=== PATIENT | male | born 1955 | race Caucasian/White ===

== ENCOUNTER → 2016-09-10 | Outpatient (CLI) | payer BC ==
--- NOTE | 2016-09-11 08:06 | XR ---
EXAMINATION TYPE: XR shoulder complete RT DATE OF EXAM: 09/10/2016 11:02 AM CLINICAL HISTORY: Right shoulder pain after slip and fall injury today TECHNIQUE: Three views of the right shoulder are obtained. COMPARISON: None. FINDINGS: There is no acute fracture/dislocation evident in the right shoulder. There may be Hill-Sa chs deformity with loss of normal spherical shape involving superior lateral humeral head. Some ossif ic curvilinear fragmentation at this level could reflect distal calcific tendinitis of the rotator cu ff tendons. Inferior glenoid is fairly well-maintained. Acromioclavicular and glenohumeral joint laxmi culations are preserved. The visualized ribs are intact and unremarkable. IMPRESSION: There is no acute fracture or dislocation in the right shoulder clearly seen. Suspect ca lcific tendinitis distal rotator cuff tendons, possible old Hill-Sachs deformity. Clinical correlatio n for prior shoulder dislocation advised.
== END | disposition home or self-care (01) ==
LOC: RADXRYALE 10:49
PROVIDERS: ATTEND Physician Assistant Medical
DX: M25.511 Pain in right shoulder (principal); W00.9XXA Unspecified fall due to ice and snow, initial encounter

== ENCOUNTER → 2016-12-12 | Outpatient (CLI) | payer BC ==
--- NOTE | 2016-12-12 08:04 | US ---
EXAMINATION TYPE: US gallbladder DATE OF EXAM: 12/12/2016 7:19 AM COMPARISON: NONE CLINICAL HISTORY: R10.11 Right upper quadrant pain. Acid reflux EXAM MEASUREMENTS: Liver Length: 17.0 cm Gallbladder Wall: 0.3 cm CBD: 0.2 cm Right Kidney: 11.1 x 5.2 x 5.0 cm Pancreas: Obscured by bowel gas Liver: large body habitus, fatty liver Gallbladder: wnl Evidence for sonographic Marr's sign: No CBD: wnl Right Kidney: wnl IMPRESSION: 1. Unremarkable right upper quadrant ultrasound. 2. Note is made of fatty infiltration liver.
== END | disposition home or self-care (01) ==
LOC: RADUSWWP 07:00
PROVIDERS: ATTEND Family Medicine
DX: K76.0 Fatty (change of) liver, not elsewhere classified (principal); R10.11 Right upper quadrant pain
CPT/HCPCS: 76705

== ENCOUNTER → 2017-09-04 | Outpatient (CLI) | payer BC ==
--- NOTE | 2017-09-04 15:13 | XR ---
EXAMINATION TYPE: XR chest 2V DATE OF EXAM: 09/04/2017 COMPARISON: NONE HISTORY: Cough and fever. TECHNIQUE: Frontal and lateral views of the chest are obtained. FINDINGS: There is chronic emphysematous and parenchymal change . Sternal wires are present. There is no focal air space opacity, pleural effusion, or pneumothorax seen. The cardiac silhouette size is upper limits of normal with atherosclerotic aorta . The osseous structures are intact. IMPRESSION: Chronic changes without suspicious acute infiltrate.
== END | disposition home or self-care (01) ==
LOC: RADXRYALE 14:48
PROVIDERS: ATTEND Physician Assistant Medical
DX: R05 Cough (principal); R50.9 Fever, unspecified
CPT/HCPCS: 71046

== ENCOUNTER → 2017-09-08 | Outpatient (CLI) | payer BC ==
--- NOTE | 2017-09-08 15:43 | XR ---
EXAMINATION TYPE: XR chest 2V DATE OF EXAM: 09/08/2017 COMPARISON: 09/04/2017 HISTORY: 62-year-old male with cough TECHNIQUE: Frontal and lateral views FINDINGS: Heart is borderline enlarged. Median sternotomy wires are present. Mild interstitial prominence as a chronic appearance. Some strandy atelectasis in the lower lungs. No consolidation or pleural effusion . IMPRESSION: Chronic changes without acute cardiopulmonary process.
== END | disposition home or self-care (01) ==
LOC: RADXRYALE 15:01
PROVIDERS: ATTEND Physician Assistant Medical
DX: R05 Cough (principal)
CPT/HCPCS: 71046

== ENCOUNTER 2018-07-02 11:19 | Emergency (ER) | payer BC ==
--- NOTE | 2018-07-02 12:22 | ED ---
General Adult HPI - General Chief complaint: Shortness of Breath Stated complaint: pneumonia-sent by Source: patient Mode of arrival: ambulatory Limitations: no limitations - History of Present Illness Initial comments: 63-year-old male patient with past medical history of CABG, diabetes, COPD presents to ED after seeing his primary care physician Dr. Josh Dominique earlier today. This patient was diagnosed with pneumonia on June 09, and started on azithromycin. Chest x-ray at that time displayed pneumonia and a pulmonary nodule, patient had follow-up CT of pulmonary nodule approximately June 14which confirmed pneumonia, and decreased concern for malignancy of pulmonary nodule. Patient was again seen by his primary care physician on June 20 where the antibiotic was changed to Levaquin. Patient saw his primary care provider earlier today, in which they took an chest x-ray patient was advised to present to ER for IV antibiotics. Patient's current complains included, persistent productive cough, shortness of breath secondary to cough. Patient denies nausea vomiting diarrhea, chest pain, exertional shortness of breath worse than baseline. Patient additionally denies, fever/chills, heart palpitations, dysuria, weakness, change in vision, syncope or presyncope. Systemic: Pt denies fatigue, myalgia, fever/chills, rash. Pt denies weakness, night sweats, weight loss. Neuro: Pt denies headache, visual disturbances, syncope or pre-syncope. HEENT: Pt denies ocular discharge or irritation, otalgia, rhinorrhea, pharyngitis or notable lymphadenopathy. Cardiopulmonary: Pt denies chest pain, SOB, heart palpitations, dyspnea on exertion. Abdominal/GI: Pt denies abdominal pain, n/v/d. : Pt denies dysuria, burning w/ urination, frequency/urgency. Denies new onset urinary or bowel incontinence. MSK: Pt denies myalgia, loss of strength or function in extremities. - Related Data Home Medications Medication Instructions Recorded Confirmed Aspirin 1 tab PO DAILY 12/13/15 07/02/18 Cimetidine [Tagamet] 400 mg PO BID 12/13/15 07/02/18 Clopidogrel [Plavix] 1 tab PO DAILY 12/13/15 12/13/15 Enalapril [Vasotec] 10 mg PO BID 12/13/15 07/02/18 Furosemide [Lasix] 20 mg PO DAILY 12/13/15 07/02/18 Isosorbide Mononitrate ER [Imdur] 30 mg PO DAILY 12/13/15 07/02/18 Levothyroxine Sodium [Synthroid] 25 mcg PO DAILY 12/13/15 07/02/18 Multivitamin [Children's 1 each PO DAILY 12/13/15 07/02/18 Multivitamins] Simvastatin [Zocor] 40 mg pe PO DAILY 12/13/15 07/02/18 metFORMIN HCL [Glucophage] 500 mg PO BID 12/13/15 07/02/18 Albuterol Sulfate [Proair Hfa] 2 puff INHALATION RT-BID PRN 07/02/18 07/02/18 Glimepiride [Amaryl] 2 mg PO BID 07/02/18 07/02/18 Levofloxacin [Levaquin] 500 mg PO DAILY 07/02/18 07/02/18 Metoprolol Tartrate [Lopressor] 25 mg PO BID 07/02/18 07/02/18 Testosterone Cypionate 200 mg IM Q14D 07/02/18 07/02/18 [Depo-Testosterone] Previous Rx's Medication Instructions Recorded Benzonatate [Tessalon Perles] 100 mg PO TID PRN #20 capsule 07/02/18 Allergies Allergy/AdvReac Type Severity Reaction Status Date / Time Mushroom Allergy Unknown Verified 07/02/18 12:45 iodine AdvReac Unknown Verified 07/02/18 12:45 Review of Systems ROS Statement: Those systems with pertinent positive or pertinent negative responses have been documented in the HPI. ROS Other: All systems not noted in ROS Statement are negative. Past Medical History Past Medical History: Coronary Artery Disease (CAD), Chest Pain / Angina, COPD, Diabetes Mellitus, Hyperlipidemia, Hypertension, Thyroid Disorder History of Any Multi-Drug Resistant Organisms: None Reported Past Surgical History: Heart Catheterization With Stent Additional Past Surgical History / Comment(s): CARDIAC BYPASS X4, LEFT CAROTID SURGERY, L/R ILIAC ARTERY STENTS, L BICEPT TENDON REPAIR, L ROTATOR CUFF REPAIR Past Psychological History: No Psychological Hx Reported Smoking Status: Former smoker Past Alcohol Use History: Occasional Past Drug Use History: None Reported General Exam - General Exam Comments Initial Comments: Constitutional: NAD, AOX3, Pt has pleasant affect. HEENT: NC/AT, trachea midline, neck supple, no lymphadenopathy. Posterior pharynx non erythematous, without exudates. External ears appear normal, without discharge. Mucous membranes moist. Eyes PERRLA, EOM intact. There is no scleral icterus. No pallor noted. Cardiopulmonary: RRR, 2/6 systolic murmur noted in right upper sternal border, rubs or gallops, no JVD noted. Lungs CTAB in anterior and posterior sanderson. +1 pitting edema bilaterally. Abdominal exam: Abdomen soft and non-distended. Abdomen non-tender to palpation in all 4 quadrants. Bowel sounds active in LLQ. No hepatosplenomegaly. Neuro: CN II-XII intact. Limitations: no limitations Course Vital Signs 07/02/18 11:43 Temperature 98.3 F Pulse Rate 106 H Respiratory 18 Rate Blood Pressure 135/65 O2 Sat by Pulse 95 Oximetry Medical Decision Making - Medical Decision Making 63-year-old male patient presented to ED after recommendation from his primary care physician. Patient has been prescribed Levaquin and other by mouth antibiotics for a presumed diagnosed pneumonia. Patient had chest x-ray early this morning that was read today as no acute cardiopulmonary process. Patient' s vital signs are stable, nonfebrile, normal heart rate. Laboratory investigations were conducted on the patient, including CBC, CMP, lactic acid. Patient's lactic acid was mildly elevated at 2.2. Patient was given 1 L of normal saline, 1 g of Rocephin. Patient is currently on Levaquin, took one dose this morning. Patient's white blood cell count displayed any left shift or leukocytosis. On physical exam a 2 out of 6 systolic murmur was detected the patient was not previously aware. An EKG did not display any acute signs of ischemia, troponin was negative. Patient not complaining of any chest pain, pleuritic chest pain. Patient scheduled for stress test with glass cutting machine feeder on Friday. Patient had some tenderness of his lower intercostals bilaterally they states from coughing, pain is reproducible by palpation. Patient is to continue taking his Levaquin, follow up with his primary care physician. Patient to follow-up with his glass cutting machine feeder Paulino Chappell for heart murmur in 1 -2 days and alert the provider before his scheduled stress test on Friday. Patient discharged with Karolina shell. Case discussed Dr. Tyler. Patient to return to ER if any new signs or symptoms develop, including chest pain, pleuritic chest pain, syncope or presyncope, or any new symptoms. - Lab Data Result diagrams: 07/02/18 12:25 07/02/18 12:25 Lab Results 07/02/18 07/02/18 07/02/18 Range/Units 12:25 12:25 12:25 WBC 8.6 (3.8-10.6) k/uL RBC 5.59 (4.30-5.90) m/uL Hgb 14.9 (13.0-17.5) gm/dL Hct 46.8 (39.0-53.0) % MCV 83.7 (80.0-100.0) fL MCH 26.7 (25.0-35.0) pg MCHC 31.8 (31.0-37.0) g/dL RDW 15.2 (11.5-15.5) % Plt Count 154 (150-450) k/uL Neutrophils % 64 % Lymphocytes % 18 % Monocytes % 7 % Eosinophils % 8 % Basophils % 1 % Neutrophils # 5.5 (1.3-7.7) k/uL Lymphocytes # 1.6 (1.0-4.8) k/uL Monocytes # 0.6 (0-1.0) k/uL Eosinophils # 0.7 (0-0.7) k/uL Basophils # 0.1 (0-0.2) k/uL Sodium 139 (137-145) mmol/L Potassium 4.7 (3.5-5.1) mmol/L Chloride 101 (98-107) mmol/L Carbon Dioxide 31 H (22-30) mmol/L Anion Gap 7 mmol/L BUN 17 (9-20) mg/dL Creatinine 0.80 (0.66-1.25) mg/dL Est GFR (CKD-EPI)AfAm >90 (>60 ml/min/1.73 sqM) Est GFR (CKD-EPI)NonAf >90 (>60 ml/min/1.73 sqM) Glucose 228 H (74-99) mg/dL Plasma Lactic Acid Julio C 2.2 H* (0.7-2.0) mmol/L Calcium 9.6 (8.4-10.2) mg/dL Total Bilirubin 0.7 (0.2-1.3) mg/dL AST 67 H (17-59) U/L ALT 72 (21-72) U/L Alkaline Phosphatase 54 (38-126) U/L Troponin I (0.000-0.034) ng/mL NT-Pro-B Natriuret Pep pg/mL Total Protein 6.9 (6.3-8.2) g/dL Albumin 4.1 (3.5-5.0) g/dL Urine Color Urine Appearance (Clear) Urine pH (5.0-8.0) Ur Specific [place] (1.001-1.035) Urine Protein (Negative) Urine Glucose (UA) (Negative) Urine Ketones (Negative) Urine Blood (Negative) Urine Nitrite (Negative) Urine Bilirubin (Negative) Urine Urobilinogen (<2.0) mg/dL Ur Leukocyte Esterase (Negative) 07/02/18 07/02/18 07/02/18 Range/Units 12:25 12:25 12:25 WBC (3.8-10.6) k/uL RBC (4.30-5.90) m/uL Hgb (13.0-17.5) gm/dL Hct (39.0-53.0) % MCV (80.0-100.0) fL MCH (25.0-35.0) pg MCHC (31.0-37.0) g/dL RDW (11.5-15.5) % Plt Count (150-450) k/uL Neutrophils % % Lymphocytes % % Monocytes % % Eosinophils % % Basophils % % Neutrophils # (1.3-7.7) k/uL Lymphocytes # (1.0-4.8) k/uL Monocytes # (0-1.0) k/uL Eosinophils # (0-0.7) k/uL Basophils # (0-0.2) k/uL Sodium (137-145) mmol/L Potassium (3.5-5.1) mmol/L Chloride (98-107) mmol/L Carbon Dioxide (22-30) mmol/L Anion Gap mmol/L BUN (9-20) mg/dL Creatinine (0.66-1.25) mg/dL Est GFR (CKD-EPI)AfAm (>60 ml/min/1.73 sqM) Est GFR (CKD-EPI)NonAf (>60 ml/min/1.73 sqM) Glucose (74-99) mg/dL Plasma Lactic Acid Julio C (0.7-2.0) mmol/L Calcium (8.4-10.2) mg/dL Total Bilirubin (0.2-1.3) mg/dL AST (17-59) U/L ALT (21-72) U/L Alkaline Phosphatase (38-126) U/L Troponin I <0.012 (0.000-0.034) ng/mL NT-Pro-B Natriuret Pep 219 pg/mL Total Protein (6.3-8.2) g/dL Albumin (3.5-5.0) g/dL Urine Color Yellow Urine Appearance Clear (Clear) Urine pH 7.0 (5.0-8.0) Ur Specific [place] 1.018 (1.001-1.035) Urine Protein Trace H (Negative) Urine Glucose (UA) 4+ H (Negative) Urine Ketones Negative (Negative) Urine Blood Negative (Negative) Urine Nitrite Negative (Negative) Urine Bilirubin Negative (Negative) Urine Urobilinogen <2.0 (<2.0) mg/dL Ur Leukocyte Esterase Negative (Negative) Disposition Clinical Impression: Pneumonitis Disposition: HOME SELF-CARE Condition: Good Instructions: Pneumonitis (ED) Additional Instructions: Patient to adhere to previously discussed treatment plan and will take medication(s) as directed. Patient to follow up with PCP in 1-2 days. Patient to return to ED if symptoms do not improve. Prescriptions: Benzonatate [Tessalon Perles] 100 mg PO TID PRN #20 capsule PRN Reason: Cough Is patient prescribed a controlled substance at d/c from ED?: No Referrals: Josh Dominique DO [Primary Care Provider] - 1-2 days Paulino Chappell DO [REFERRING] - 1-2 days
[2018-07-02 12:48] LABS: Appearance,Urine Clear (Clear); Bilirubin,Urine Negative (Negative); Blood,Urine Negative (Negative); Color,Urine Yellow; Glucose,Urine (UA) 4+ (Negative); Ketones,Urine Negative (Negative); Leukocyte Esterase,Urine Negative (Negative); Nitrite,Urine Negative (Negative); Protein,Urine Trace (Negative); Specific Gravity,Urine 1.018 (1.001-1.035); Urobilinogen,Urine <2.0 mg/dL (<2.0)
[2018-07-02 12:50] LABS: Basophils # (A) 0.1 k/uL (0-0.2); Basophils % (A) 1 %; Eosinophils # (A) 0.7 k/uL (0-0.7); Eosinophils % (A) 8 %; HCT 46.8 % (39.0-53.0); HGB 14.9 gm/dL (13.0-17.5); Lymphocytes # (A) 1.6 k/uL (1.0-4.8); Lymphocytes % (A) 18 %; MCH 26.7 pg (25.0-35.0); MCHC 31.8 g/dL (31.0-37.0); MCV 83.7 fL (80.0-100.0); Mean Platelet Volume 7.7; Monocytes # (A) 0.6 k/uL (0-1.0); Monocytes % (A) 7 %; Neutrophils # (A) 5.5 k/uL (1.3-7.7); Neutrophils % (A) 64 %; Platelet Count 154 k/uL (150-450); RBC 5.59 m/uL (4.30-5.90); RDW 15.2 % (11.5-15.5); WBC 8.6 k/uL (3.8-10.6)
[2018-07-02 12:59] LABS: ALT 72 U/L (21-72); AST 67 U/L (17-59); Albumin 4.1 g/dL (3.5-5.0); Alkaline Phosphatase 54 U/L (38-126); Anion Gap 7 mmol/L; Blood Urea Nitrogen 17 mg/dL (9-20); Calcium 9.6 mg/dL (8.4-10.2); Carbon Dioxide 31 mmol/L (22-30); Chloride 101 mmol/L (98-107); Glucose 228 mg/dL (74-99); Potassium 4.7 mmol/L (3.5-5.1); Sodium 139 mmol/L (137-145); Total Bilirubin 0.7 mg/dL (0.2-1.3); Total Protein 6.9 g/dL (6.3-8.2)
[2018-07-02] MEDS ORDERED: SODIUM CHLORIDE 0.9% 1,000 ML IV STA (13:24)
[2018-07-02 16:13] VITALS: BP 166/79; PULSE 78; RESP 20; TEMP 98
== END 2018-07-02 16:12 | disposition home or self-care (01) ==
LOC: EC 11:19
DX: J18.9 Pneumonia, unspecified organism (principal); J44.0 Chronic obstructive pulmonary disease with (acute) lower respiratory infection; I25.10 Atherosclerotic heart disease of native coronary artery without angina pectoris; E11.9 Type 2 diabetes mellitus without complications; E78.5 Hyperlipidemia, unspecified; I10 Essential (primary) hypertension; E07.9 Disorder of thyroid, unspecified; Z87.891 Personal history of nicotine dependence; Z95.1 Presence of aortocoronary bypass graft; Z95.5 Presence of coronary angioplasty implant and graft; Z98.890 Other specified postprocedural states; Z79.02 Long term (current) use of antithrombotics/antiplatelets; Z79.82 Long term (current) use of aspirin; Z79.84 Long term (current) use of oral hypoglycemic drugs; Z79.899 Other long term (current) drug therapy; Z91.018 Allergy to other foods; Z91.048 Other nonmedicinal substance allergy status
CPT/HCPCS: 36415; 93005; 83880; 80053; 83605; 84484; 85025; 81003; 87040; 87086; 99285; 96365; 96366; J0696

== ENCOUNTER → 2018-07-02 | Outpatient (CLI) | payer BC ==
--- NOTE | 2018-07-02 10:57 | XR ---
EXAMINATION TYPE: XR chest 2V DATE OF EXAM: 07/02/2018 COMPARISON: Chest x-ray September 08, 2017. HISTORY: Bronchopneumonia per order. Cough wheezing congestion per patient. TECHNIQUE: Frontal and lateral views of the chest are obtained. FINDINGS: There is some chronic parenchymal change without suspicious new focal air space opacity, p leural effusion, or pneumothorax seen. The cardiac silhouette size is enlarged. Post CABG changes with mediastinal clips and sternal wires is present. The osseous structures are intact. IMPRESSION: Cardiomegaly and chronic changes without acute pulmonary process. No significant change from most recent chest x-ray.
== END | disposition home or self-care (01) ==
LOC: RADXRYALE 08:45
PROVIDERS: ATTEND Physician Assistant Medical
DX: J98.4 Other disorders of lung (principal); I51.7 Cardiomegaly
CPT/HCPCS: 71046

== ENCOUNTER → 2019-04-05 | Outpatient (CLI) | payer BC ==
[2019-04-05 17:18] LABS: Basophils # (A) 0.1 k/uL (0-0.2); Basophils % (A) 1 %; Eosinophils # (A) 0.3 k/uL (0-0.7); Eosinophils % (A) 3 %; Lymphocytes # (A) 2.4 k/uL (1.0-4.8); Lymphocytes % (A) 26 %; MCH 27.9 pg (25.0-35.0); MCV 87.2 fL (80.0-100.0); Mean Platelet Volume 6.8; Monocytes # (A) 0.7 k/uL (0-1.0); Monocytes % (A) 7 %; Neutrophils # (A) 5.7 k/uL (1.3-7.7); Neutrophils % (A) 61 %; Platelet Count 255 k/uL (150-450); RBC 5.39 m/uL (4.30-5.90); RDW 14.4 % (11.5-15.5); WBC 9.4 k/uL (3.8-10.6)
[2019-04-06 02:17] LABS: African American GFR (CKD) 93.1 (60.0-200.0); Albumin 4.9 g/dL (3.80-4.90); Albumin/Globulin Ratio 2.72 (1.60-3.17); Anion Gap 12.4 mmol/L (4.00-12.00); Calcium 10.1 mg/dL (8.7-10.3); Carbon Dioxide 29.6 mmol/L (21.6-31.8); Chol/HDL Ratio 3.78; Globulin 1.8 g/dL (1.6-3.3); LDL Cholesterol,Calculated 130.2 mg/dL (0.0-131.0); Non-African American GFR(CKD) 80.3 (60.0-200.0); Potassium 4.3 mmol/L (3.5-5.5); Total Bilirubin 0.8 mg/dL (0.2-1.2); Total Protein 6.7 g/dL (6.2-8.2); VLDL Calculation 19.8 mg/dL (5.00-40.00)
== END | disposition home or self-care (01) ==
LOC: LABWHC1 16:54
PROVIDERS: ATTEND Physician Assistant Medical
DX: I10 Essential (primary) hypertension (principal); J44.9 Chronic obstructive pulmonary disease, unspecified; E78.2 Mixed hyperlipidemia; I73.9 Peripheral vascular disease, unspecified; E03.9 Hypothyroidism, unspecified; E11.65 Type 2 diabetes mellitus with hyperglycemia
CPT/HCPCS: 36415; 80053; 80061; 82550; 84439; 84443; 85025

== ENCOUNTER → 2019-05-26 | Outpatient (CLI) | payer BC | END | disposition home or self-care (01) | LOC: CPPFTMAIN 13:39 | PROVIDERS: ATTEND Internal Medicine Critical Care Medicine | DX: J44.9 Chronic obstructive pulmonary disease, unspecified (principal); J98.8 Other specified respiratory disorders | CPT/HCPCS: 94060; 94726; 94729 ==

== ENCOUNTER → 2020-01-26 | Outpatient (CLI) | payer BC ==
--- NOTE | 2020-01-26 15:10 | XR ---
EXAMINATION TYPE: XR foot complete LT DATE OF EXAM: 01/26/2020 CLINICAL HISTORY: Pain and focal swelling worse over fifth metatarsal. TECHNIQUE: Frontal, lateral, and oblique images of the left foot are obtained. COMPARISON: None FINDINGS: There is no acute fracture/dislocation evident in the left foot. Moderate to severe narrow ing with subchondral cystic change and mild spurring first metatarsal phalangeal joint. Some flexion in the distal second through fifth toes along with varus positioning distal fourth and fifth toes. S mall inferior calcaneal spur. Curvilinear calcification on enthesopathy along the distal Achilles ten don. The overlying soft tissue appears unremarkable. IMPRESSION: As above.
== END | disposition home or self-care (01) ==
LOC: RADXRYALE 14:53
PROVIDERS: ATTEND Physician Assistant
DX: M77.32 Calcaneal spur, left foot (principal); M65.872 Other synovitis and tenosynovitis, left ankle and foot

== ENCOUNTER → 2020-03-14 | Outpatient (CLI) | payer BC | END | disposition home or self-care (01) | LOC: LABWHC1 10:06 | PROVIDERS: ATTEND Physician Assistant Medical | DX: Z20.828 Contact with and (suspected) exposure to other viral communicable diseases (principal); Z20.2 Contact with and (suspected) exposure to infections with a predominantly sexual mode of transmission | CPT/HCPCS: 36415; U0003; C9803; 86769 ==

== ENCOUNTER 2020-08-02 11:20 | Inpatient (IN) | payer BC ==
[2020-08-02] MEDS ORDERED: methylPREDNISolone SOD SUCCI 125 MG/2 ML VIAL IV STA (11:48)
[2020-08-02] MEDS ORDERED: IPRATROPIUM-ALBUTEROL 3 ML NEB INHALATION STA (11:48)
[2020-08-02] MEDS ORDERED: ALBUTEROL HFA INHALER INHALATION STA (11:54)
[2020-08-02 12:17] LABS: Basophils # (A) 0.1 k/uL (0-0.2); Basophils % (A) 1 %; Eosinophils # (A) 0.2 k/uL (0-0.7); Eosinophils % (A) 2 %; HCT 43.7 % (39.0-53.0); HGB 14.2 gm/dL (13.0-17.5); Lymphocytes # (A) 1.6 k/uL (1.0-4.8); Lymphocytes % (A) 17 %; MCH 27.9 pg (25.0-35.0); MCHC 32.5 g/dL (31.0-37.0); MCV 85.7 fL (80.0-100.0); Mean Platelet Volume 7.4; Monocytes # (A) 0.6 k/uL (0-1.0); Monocytes % (A) 6 %; Neutrophils # (A) 6.7 k/uL (1.3-7.7); Neutrophils % (A) 72 %; Platelet Count 211 k/uL (150-450); RDW 13.7 % (11.5-15.5); WBC 9.3 k/uL (3.8-10.6)
[2020-08-02 12:25] LABS: ALT 50 U/L (4-49); AST 44 U/L (17-59); African American GFR (CKD) >90 (>60 ml/min/1.73 sqM); Alkaline Phosphatase 63 U/L (38-126); Anion Gap 6 mmol/L; Blood Urea Nitrogen 11 mg/dL (9-20); Calcium 9.3 mg/dL (8.4-10.2); Carbon Dioxide 29 mmol/L (22-30); Chloride 102 mmol/L (98-107); Creatine Kinase 98 U/L (55-170); Glucose 216 mg/dL (74-99); Magnesium 1.7 mg/dL (1.6-2.3); Non-African American GFR(CKD) >90 (>60 ml/min/1.73 sqM); Potassium 4.3 mmol/L (3.5-5.1); Sodium 137 mmol/L (137-145); Total Bilirubin 0.8 mg/dL (0.2-1.3); Total Protein 6.7 g/dL (6.3-8.2)
--- NOTE | 2020-08-02 12:26 | ED ---
SOB HPI - General Chief Complaint: Shortness of Breath Stated Complaint: SOB,Low O2 Time Seen by Provider: 08/02/20 11:41 Source: patient, family, EMS, RN notes reviewed, old records reviewed Mode of arrival: EMS Limitations: no limitations - History of Present Illness Initial Comments: This is a 65-year-old male with a history of COPD and heart disease with bypass surgery who states he had the onset yesterday of shortness of breath and exertional dyspnea is been getting worse no fevers chills sweats slight cough but no phlegm production no loss of taste or smell no nasal drainage no sore throat. He states he was easily relief of his home medication he does use oxygen at night 2 L. He states his saturations were 74% on 3 L went up to 91% no overt chest pain no other complaints or modifying factors. MD Complaint: shortness of breath - Related Data Home Medications Medication Instructions Recorded Confirmed Clopidogrel [Plavix] 75 mg PO DAILY 12/13/15 08/02/20 Enalapril [Vasotec] 20 mg PO BID 12/13/15 08/02/20 Levothyroxine Sodium [Synthroid] 25 mcg PO DAILY 12/13/15 08/02/20 metFORMIN HCL [Glucophage] 1,000 mg PO BID 12/13/15 08/02/20 Albuterol Sulfate [Proair Hfa] 2 puff INHALATION RT-QID PRN 07/02/18 08/02/20 Glimepiride [Amaryl] 2 mg PO BID 07/02/18 08/02/20 Aspirin EC [Ecotrin Low Dose] 81 mg PO DAILY 08/02/20 08/02/20 Carvedilol [Coreg] 12.5 mg PO BID 08/02/20 08/02/20 Famotidine [Pepcid] 20 mg PO DAILY 08/02/20 08/02/20 Famotidine [Pepcid] 40 mg PO HS 08/02/20 08/02/20 Fluticasone Propion/Salmeterol 1 puff INHALATION RT-BID 08/02/20 08/02/20 [Fluticasone-Salmeterol 500-50] Isosorbide Mononitrate ER [Imdur] 15 mg PO DAILY 08/02/20 08/02/20 Multivit-Min/FA/Lycopen/Lutein 1 tab PO DAILY 08/02/20 08/02/20 [Centrum Silver Tablet] Simvastatin 40 mg PO HS 08/02/20 08/02/20 Tiotropium [place] [Spiriva] 1 cap INHALATION RT-DAILY 08/02/20 08/02/20 Zinc 50 mg PO DAILY 08/02/20 08/02/20 Allergies Allergy/AdvReac Type Severity Reaction Status Date / Time bee venom protein (honey bee) Allergy Anaphylaxis Verified 08/02/20 13:31 Iodinated Contrast Media Allergy Rash/Hives Verified 08/02/20 13:31 iodine Allergy Rash/Hives Verified 08/02/20 13:31 Mushroom Allergy Unknown Verified 08/02/20 13:31 prednisone Allergy Unknown Verified 08/02/20 13:32 Review of Systems ROS Statement: Those systems with pertinent positive or pertinent negative responses have been documented in the HPI. ROS Other: All systems not noted in ROS Statement are negative. Past Medical History Past Medical History: Coronary Artery Disease (CAD), Chest Pain / Angina, COPD, Diabetes Mellitus, Hyperlipidemia, Hypertension, Thyroid Disorder History of Any Multi-Drug Resistant Organisms: None Reported Past Surgical History: Heart Catheterization With Stent Additional Past Surgical History / Comment(s): CARDIAC BYPASS X4, LEFT CAROTID SURGERY, L/R ILIAC ARTERY STENTS, L BICEPT TENDON REPAIR, L ROTATOR CUFF REPAIR Past Psychological History: No Psychological Hx Reported Past Alcohol Use History: Occasional Past Drug Use History: None Reported General Exam - General Exam Comments Initial Comments: This is a well-developed well-nourished awake alert oriented 3 male Limitations: no limitations General appearance: alert, anxious Head exam: Present: atraumatic, normocephalic, normal inspection Eye exam: Present: normal appearance, PERRL, EOMI. Absent: scleral icterus, con junctival injection, periorbital swelling ENT exam: Present: normal exam, mucous membranes moist Neck exam: Present: normal inspection, full ROM, other (No stridor JVD or bruits). Absent: tenderness, meningismus, lymphadenopathy Respiratory exam: Present: wheezes, decreased breath sounds. Absent: respiratory distress, rales, rhonchi, stridor Cardiovascular Exam: Present: regular rate, normal rhythm, normal heart sounds. Absent: systolic murmur, diastolic murmur, rubs, gallop, clicks GI/Abdominal exam: Present: soft, normal bowel sounds. Absent: distended, tenderness, guarding, rebound, rigid Extremities exam: Present: normal inspection, full ROM, normal capillary refill. Absent: tenderness, pedal edema, joint swelling, calf tenderness Back exam: Present: normal inspection Neurological exam: Present: alert, oriented X3, CN II-XII intact Psychiatric exam: Present: normal affect, normal mood Skin exam: Present: warm, dry, intact, normal color. Absent: rash Course Vital Signs 08/02/20 08/02/20 08/02/20 11:21 11:48 13:17 Temperature 98 F Pulse Rate 71 75 Respiratory 18 22 20 Rate Blood Pressure 171/82 171/82 O2 Sat by Pulse 95 97 Oximetry Medical Decision Making - Medical Decision Making Patient did feel better after the breathing treatment. He does however state that about a week ago he had heartburn it lasted throughout the night. None since then. I did discuss findings with him and his . Patient does have evidence of an N STEMI. He is currently pain-free he will be admitted I did dis cuss the case with Dr. Coughlin - Lab Data Result diagrams: 08/02/20 11:50 08/02/20 11:50 Lab Results 08/02/20 08/02/20 08/02/20 Range/Units 11:35 11:50 11:50 WBC 9.3 (3.8-10.6) k/uL RBC 5.10 (4.30-5.90) m/uL Hgb 14.2 (13.0-17.5) gm/dL Hct 43.7 (39.0-53.0) % MCV 85.7 (80.0-100.0) fL MCH 27.9 (25.0-35.0) pg MCHC 32.5 (31.0-37.0) g/dL RDW 13.7 (11.5-15.5) % Plt Count 211 (150-450) k/uL MPV 7.4 Neutrophils % 72 % Lymphocytes % 17 % Monocytes % 6 % Eosinophils % 2 % Basophils % 1 % Neutrophils # 6.7 (1.3-7.7) k/uL Lymphocytes # 1.6 (1.0-4.8) k/uL Monocytes # 0.6 (0-1.0) k/uL Eosinophils # 0.2 (0-0.7) k/uL Basophils # 0.1 (0-0.2) k/uL PT 11.0 (9.0-12.0) sec INR 1.1 (<1.2) APTT 23.6 (22.0-30.0) sec D-Dimer 0.66 H (<0.60) mg/L FEU Sodium (137-145) mmol/L Potassium (3.5-5.1) mmol/L Chloride (98-107) mmol/L Carbon Dioxide (22-30) mmol/L Anion Gap mmol/L BUN (9-20) mg/dL Creatinine (0.66-1.25) mg/dL Est GFR (CKD-EPI)AfAm (>60 ml/min/1.73 sqM) Est GFR (CKD-EPI)NonAf (>60 ml/min/1.73 sqM) Glucose (74-99) mg/dL Plasma Lactic Acid Julio C (0.7-2.0) mmol/L Calcium (8.4-10.2) mg/dL Magnesium (1.6-2.3) mg/dL Total Bilirubin (0.2-1.3) mg/dL AST (17-59) U/L ALT (4-49) U/L Alkaline Phosphatase (38-126) U/L Creatine Kinase (55-170) U/L Troponin I (0.000-0.034) ng/mL NT-Pro-B Natriuret Pep pg/mL Total Protein (6.3-8.2) g/dL Albumin (3.5-5.0) g/dL Coronavirus (PCR) Not Detected (Not Detectd) 08/02/20 08/02/20 08/02/20 Range/Units 11:50 11:50 11:50 WBC (3.8-10.6) k/uL RBC (4.30-5.90) m/uL Hgb (13.0-17.5) gm/dL Hct (39.0-53.0) % MCV (80.0-100.0) fL MCH (25.0-35.0) pg MCHC (31.0-37.0) g/dL RDW (11.5-15.5) % Plt Count (150-450) k/uL MPV Neutrophils % % Lymphocytes % % Monocytes % % Eosinophils % % Basophils % % Neutrophils # (1.3-7.7) k/uL Lymphocytes # (1.0-4.8) k/uL Monocytes # (0-1.0) k/uL Eosinophils # (0-0.7) k/uL Basophils # (0-0.2) k/uL PT (9.0-12.0) sec INR (<1.2) APTT (22.0-30.0) sec D-Dimer (<0.60) mg/L FEU Sodium 137 (137-145) mmol/L Potassium 4.3 (3.5-5.1) mmol/L Chloride 102 (98-107) mmol/L Carbon Dioxide 29 (22-30) mmol/L Anion Gap 6 mmol/L BUN 11 (9-20) mg/dL Creatinine 0.68 (0.66-1.25) mg/dL Est GFR (CKD-EPI)AfAm >90 (>60 ml/min/1.73 sqM) Est GFR (CKD-EPI)NonAf >90 (>60 ml/min/1.73 sqM) Glucose 216 H (74-99) mg/dL Plasma Lactic Acid Julio C 1.6 (0.7-2.0) mmol/L Calcium 9.3 (8.4-10.2) mg/dL Magnesium 1.7 (1.6-2.3) mg/dL Total Bilirubin 0.8 (0.2-1.3) mg/dL AST 44 (17-59) U/L ALT 50 H (4-49) U/L Alkaline Phosphatase 63 (38-126) U/L Creatine Kinase 98 (55-170) U/L Troponin I 0.256 H* (0.000-0.034) ng/mL NT-Pro-B Natriuret Pep pg/mL Total Protein 6.7 (6.3-8.2) g/dL Albumin 4.0 (3.5-5.0) g/dL Coronavirus (PCR) (Not Detectd) 08/02/20 Range/Units 11:50 WBC (3.8-10.6) k/uL RBC (4.30-5.90) m/uL Hgb (13.0-17.5) gm/dL Hct (39.0-53.0) % MCV (80.0-100.0) fL MCH (25.0-35.0) pg MCHC (31.0-37.0) g/dL RDW (11.5-15.5) % Plt Count (150-450) k/uL MPV Neutrophils % % Lymphocytes % % Monocytes % % Eosinophils % % Basophils % % Neutrophils # (1.3-7.7) k/uL Lymphocytes # (1.0-4.8) k/uL Monocytes # (0-1.0) k/uL Eosinophils # (0-0.7) k/uL Basophils # (0-0.2) k/uL PT (9.0-12.0) sec INR (<1.2) APTT (22.0-30.0) sec D-Dimer (<0.60) mg/L FEU Sodium (137-145) mmol/L Potassium (3.5-5.1) mmol/L Chloride (98-107) mmol/L Carbon Dioxide (22-30) mmol/L Anion Gap mmol/L BUN (9-20) mg/dL Creatinine (0.66-1.25) mg/dL Est GFR (CKD-EPI)AfAm (>60 ml/min/1.73 sqM) Est GFR (CKD-EPI)NonAf (>60 ml/min/1.73 sqM) Glucose (74-99) mg/dL Plasma Lactic Acid Julio C (0.7-2.0) mmol/L Calcium (8.4-10.2) mg/dL Magnesium (1.6-2.3) mg/dL Total Bilirubin (0.2-1.3) mg/dL AST (17-59) U/L ALT (4-49) U/L Alkaline Phosphatase (38-126) U/L Creatine Kinase (55-170) U/L Troponin I (0.000-0.034) ng/mL NT-Pro-B Natriuret Pep 1460 pg/mL Total Protein (6.3-8.2) g/dL Albumin (3.5-5.0) g/dL Coronavirus (PCR) (Not Detectd) - EKG Data -: EKG Interpreted by Me EKG shows normal: sinus rhythm (Was sinus rhythm a 71 appear interval 206 QRS duration 138 QT since QTC 432/469 possible left atrial enlargement rightward axis nonspecific interventricular block and T-wave configuration) - Radiology Data Radiology results: report reviewed (Maternal reviewed evidence of increased pulmonary markings consistent with mild CHF.), image reviewed Critical Care Time Critical Care Time: Yes Total Critical Care Time: 31 Critical Care Time: 31 minutes of critical care time which includes initial presentation with history physical labs x-rays reevaluation patient determine fossa treatment. Discussed with the patient family regarding findings discussed with the admitting physician admission orders neck mentation the above Disposition Clinical Impression: Acute exacerbation of chronic obstructive pulmonary disease, Non-STEMI (non-ST elevated myocardial infarction) Disposition: ADMITTED IP TO THIS HOSP Condition: Fair Referrals: Josh Dominique DO [Primary Care Provider] - 1-2 days
[2020-08-02 12:27] LABS: INR 1.1 (<1.2); Partial Thromboplastin Time 23.6 sec (22.0-30.0)
[2020-08-02 12:35] LABS: D-Dimer 0.66 mg/L FEU (<0.60)
--- NOTE | 2020-08-02 12:40 | XR ---
EXAMINATION TYPE: XR chest 2V DATE OF EXAM: 08/02/2020 COMPARISON: 07/02/2018 INDICATION: Difficulty breathing low oxygenation TECHNIQUE: Frontal and lateral views of the chest are obtained. FINDINGS: The heart size is moderately prominent. The pulmonary vasculature is prominent. There is mild diffuse increased lung markings. Findings are worsening over the interval. Clinical cor relation recommended for pulmonary edema or atypical pneumonia. IMPRESSION: 1. Clinical correlation recommended for mild congestive heart failure. Atypical pneumonia should be c onsidered. Follow-up can be performed.
[2020-08-02] MEDS ORDERED: HEPARIN SODIUM,PORCINE 5,000 UNIT/ML 1 ML VIAL IV ONE (13:49)
[2020-08-02] MEDS ORDERED: NITROGLYCERIN SL TABS 0.4 MG TAB SUBLINGUAL PRN (13:49)
[2020-08-02] MEDS ORDERED: FUROSEMIDE 10 MG/ML 4 ML VIAL IV STA (13:51)
[2020-08-02] MEDS: SODIUM CHLORIDE 0.9% 1,000 ML IV SCH (14:06)
[2020-08-02] MEDS: HEPARIN SOD,PORK IN 0.45% NACL 25,000 UNIT in 0.45% NACL 1 250ML.BAG IV SCH (14:11)
--- NOTE | 2020-08-02 14:14 | P.HPIM ---
History of Present Illness Patient is a pleasant 65-year-old the male with known history of COPD uses 2 L of oxygen at nighttime came in with complains of shortness of breath denied any fever chills, was comparing of slight nonproductive cough chest x-ray did not show any pneumonia.Patient's oxygen saturations were as low as 74% which improved after using oxygen. Patient was wheezing quite a bit last night. Patient was given Solu-Medrol here in ER after which his wheezing resolved patient is feeling much better now. Although up on regular lab testing patient is found to have mildly elevated troponin of 0.2 patient does have history of coronary artery bypass grafting patient had an EKG which did show some acute ST- T wave changes in anterolateral leads along with the T-wave inversions in the same leads. Because of which patient is being admitted with IV heparin and cariology consul Review of Systems REVIEW OF SYSTEMS: CONSTITUTIONAL: No fever, no malaise, no fatigue. HEENT: No recent visual problems or hearing problems. Denied any sore throat. CARDIOVASCULAR: No chest pain, orthopnea, PND, no palpitations, no syncope. PULMONARY: no hemoptysis. GASTROINTESTINAL: No diarrhea, no nausea, no vomiting, no abdominal pain. NEUROLOGICAL: No headaches, no weakness, no numbness. HEMATOLOGICAL: Denies any bleeding or petechiae. GENITOURINARY: Denies any burning micturition, frequency, or urgency. MUSCULOSKELETAL/RHEUMATOLOGICAL: Denies any joint pain, swelling, or any muscle pain. ENDOCRINE: Denies any polyuria or polydipsia. The rest of the 14-point review of systems is negative. Past Medical History Past Medical History: Coronary Artery Disease (CAD), Chest Pain / Angina, COPD, Diabetes Mellitus, Hyperlipidemia, Hypertension, Thyroid Disorder History of Any Multi-Drug Resistant Organisms: None Reported Past Surgical History: Heart Catheterization With Stent Additional Past Surgical History / Comment(s): CARDIAC BYPASS X4, LEFT CAROTID SURGERY, L/R ILIAC ARTERY STENTS, L BICEPT TENDON REPAIR, L ROTATOR CUFF REPAIR Past Psychological History: No Psychological Hx Reported Past Alcohol Use History: Occasional Past Drug Use History: None Reported Medications and Allergies Home Medications Medication Instructions Recorded Confirmed Type Clopidogrel [Plavix] 75 mg PO DAILY 12/13/15 08/02/20 History Enalapril [Vasotec] 20 mg PO BID 12/13/15 08/02/20 History Levothyroxine Sodium [Synthroid] 25 mcg PO DAILY 12/13/15 08/02/20 History metFORMIN HCL [Glucophage] 1,000 mg PO BID 12/13/15 08/02/20 History Albuterol Sulfate [Proair Hfa] 2 puff INHALATION RT-QID PRN 07/02/18 08/02/20 History Glimepiride [Amaryl] 2 mg PO BID 07/02/18 08/02/20 History Aspirin EC [Ecotrin Low Dose] 81 mg PO DAILY 08/02/20 08/02/20 History Carvedilol [Coreg] 12.5 mg PO BID 08/02/20 08/02/20 History Famotidine [Pepcid] 20 mg PO DAILY 08/02/20 08/02/20 History Famotidine [Pepcid] 40 mg PO HS 08/02/20 08/02/20 History Fluticasone Propion/Salmeterol 1 puff INHALATION RT-BID 08/02/20 08/02/20 History [Fluticasone-Salmeterol 500-50] Isosorbide Mononitrate ER [Imdur] 15 mg PO DAILY 08/02/20 08/02/20 History Multivit-Min/FA/Lycopen/Lutein 1 tab PO DAILY 08/02/20 08/02/20 History [Centrum Silver Tablet] Simvastatin 40 mg PO HS 08/02/20 08/02/20 History Tiotropium Donovan [Spiriva] 1 cap INHALATION RT-DAILY 08/02/20 08/02/20 History Zinc 50 mg PO DAILY 08/02/20 08/02/20 History Allergies Allergy/AdvReac Type Severity Reaction Status Date / Time bee venom protein (honey bee) Allergy Anaphylaxis Verified 08/02/20 13:31 Iodinated Contrast Media Allergy Rash/Hives Verified 08/02/20 13:31 iodine Allergy Rash/Hives Verified 08/02/20 13:31 Mushroom Allergy Unknown Verified 08/02/20 13:31 prednisone Allergy Unknown Verified 08/02/20 13:32 Physical Exam Vitals: Vital Signs Temp Pulse Resp BP Pulse Ox 08/02/20 13:17 75 20 171/82 97 08/02/20 11:48 22 08/02/20 11:21 98 F 71 18 171/82 95 Intake and Output 08/01/20 08/02/20 08/02/20 22:59 06:59 14:59 Other: Weight 113.398 kg PHYSICAL EXAMINATION: GENERAL: The patient is alert and oriented x3, not in any acute distress. Well developed, well nourished. HEENT: Pupils are round and equally reacting to light. EOMI. No scleral icterus. No conjunctival pallor. Normocephalic, atraumatic. No pharyngeal erythema. No thyromegaly. CARDIOVASCULAR: S1 and S2 present. No murmurs, rubs, or gallops. PULMONARY: Chest is clear to auscultation, no wheezing or crackles. ABDOMEN: Soft, nontender, nondistended, normoactive bowel sounds. No palpable organomegaly. MUSCULOSKELETAL: No joint swelling or deformity. EXTREMITIES: No cyanosis, clubbing, or pedal edema. NEUROLOGICAL: Gross neurological examination did not reveal any focal deficits. SKIN: No rashes. Results CBC & Chem 7: 08/02/20 11:50 08/02/20 11:50 Labs: Abnormal Lab Results - Last 24 Hours (Table) 08/02/20 08/02/20 08/02/20 Range/Units 11:50 11:50 11:50 D-Dimer 0.66 H (<0.60) mg/L FEU Glucose 216 H (74-99) mg/dL ALT 50 H (4-49) U/L Troponin I 0.256 H* (0.000-0.034) ng/mL Assessment and Plan Plan: -Troponin elevation: Possibility of non-ST elevation microinfarction cannot be ruled out. We will repeat 2 more sets of troponins. EKGs. Cardiology was consulted patient was started on IV heparin. Patient will be admitted. Patient had a symptoms of gastroesophageal reflux about 2 weeks ago. -COPD with acute exacerbation of on admission presently resolved patient is not wheezing will not require any systemic steroids. -Coronary artery disease with history of CABG in the past -Type 2 diabetes mellitus next and-hyperlipidemia -Hypertension -Hypothyroidism
[2020-08-02 16:26] LABS: Glucose,Whole Blood 154 mg/dL (75-99)
[2020-08-02] MEDS: metFORMIN 500 MG TAB PO SCH (17:22)
[2020-08-02] MEDS: MAGNESIUM SULFATE-D5W PMX 1 GM in DEXTROSE/WATER 1 100ML.BAG IVPB SCH ×2 (17:22→18:44)
[2020-08-02] MEDS: carvediloL 12.5 MG TAB PO SCH (17:23)
[2020-08-02] MEDS: GLIMEPIRIDE 2 MG TAB PO SCH (17:23)
[2020-08-02] MEDS ORDERED: IPRATROPIUM-ALBUTEROL 3 ML NEB INHALATION SCH (20:00)
[2020-08-02 20:06] LABS: Glucose,Whole Blood 244 mg/dL (75-99)
[2020-08-02] MEDS: SYMBICORT 160-4.5 MCG INHALER INHALATION SCH ×2 (20:59→21:30)
[2020-08-02] MEDS: FAMOTIDINE 20 MG TAB PO SCH (21:27)
[2020-08-02] MEDS: ATORVASTATIN 20 MG TAB PO SCH (21:27)
[2020-08-02] MEDS: lisinopriL 20 MG TAB PO SCH (21:27)
[2020-08-02] MEDS: ALBUTEROL HFA INHALER INHALATION SCH (21:29)
[2020-08-02] MEDS ORDERED: HEPARIN SODIUM,PORCINE 5,000 UNIT/ML 1 ML VIAL IV PRN (21:33)
[2020-08-03 06:27] LABS: Glucose,Whole Blood 126 mg/dL (75-99)
[2020-08-03] MEDS: HEPARIN SOD,PORK IN 0.45% NACL 25,000 UNIT in 0.45% NACL 1 250ML.BAG IV SCH (06:47)
[2020-08-03] MEDS: LEVOTHYROXINE 25 MCG TAB PO SCH (06:51)
[2020-08-03] MEDS: carvediloL 12.5 MG TAB PO SCH ×2 (06:51→16:54)
[2020-08-03] MEDS ORDERED: TIOTROPIUM 18 MCG/PUFF INHALER INHALATION SCH (08:00)
[2020-08-03] MEDS ORDERED: ASPIRIN 325 MG TAB PO SCH (09:00)
[2020-08-03] MEDS: CLOPIDOGREL 75 MG TAB PO SCH (09:14)
[2020-08-03] MEDS: MULTIVITAMINS, THERA 1 EACH TAB PO SCH (09:15)
[2020-08-03] MEDS: lisinopriL 20 MG TAB PO SCH ×2 (09:15→20:11)
[2020-08-03] MEDS: ZINC SULFATE 220 MG CAP PO SCH (09:15)
[2020-08-03] MEDS: metFORMIN 500 MG TAB PO SCH ×2 (09:18→16:54)
[2020-08-03] MEDS: GLIMEPIRIDE 2 MG TAB PO SCH ×2 (09:18→16:54)
[2020-08-03] MEDS: ISOSORBIDE MONONITRATE ER 15 MG TAB PO SCH (09:18)
[2020-08-03] MEDS: ALBUTEROL HFA INHALER INHALATION SCH ×4 (10:10→21:03)
[2020-08-03] MEDS: SYMBICORT 160-4.5 MCG INHALER INHALATION SCH ×2 (10:12→21:04)
--- NOTE | 2020-08-03 10:15 | ECHOF ---
Referral Reason:sob, elev trop MEASUREMENTS -------- HEIGHT: 180.3 cm WEIGHT: 131.1 kg BP: RVIDd: 2.6 cm (< 3.3) IVSd: 1.7 cm (0.6 - 1.1) LVIDd: 5.3 cm (3.9 - 5.3) LVPWd: 1.6 cm (0.6 - 1.1) IVSs: 1.8 cm LVIDs: 4.5 cm LVPWs: 1.9 cm Ao Diam: 3.4 cm (2.0 - 3.7) AV Cusp: 1.6 cm (1.5 - 2.6) LA Diam: 4.0 cm (2.7 - 3.8) MV EXCURSION: 17.354 mm (> 18.000) MV EF SLOPE: 89 mm/s (70 - 150) EPSS: 1.6 cm MV E Ramiro: 0.75 m/s MV DecT: 171 ms MV A Ramiro: 0.55 m/s MV E/A Ratio: 1.36 RAP: 5.00 mmHg RVSP: 9.94 mmHg FINDINGS -------- This was a technically difficult study with suboptimal views. The left ventricular size is normal. There is moderate concentric left ventricular hypertrophy. O verall left ventricular systolic function is moderate-severely impaired with, an EF between 30 - 35 % . Basal inferoseptal LV wall motion is hypokinetic. Mid inferoseptal LV wall motion is hypokinet ic. Inferiorlateral Hypokinesis The right ventricle is normal in size. The left atrial size is normal. The right atrial size is normal. Lumason used Aortic valve is trileaflet and is mildly thickened. Trace amount of aortic regurgitation. There appears to be a small approximately 0.5cm echodenisty of the aortic valve, cannot rule out vegetation . Recommend SOPHIA if clincally indicated. The mitral valve is normal. The mitral valve leaflets are mildly thickened. Mild mitral regurgita tion is present. The tricuspid valve appears structurally normal. Mild tricuspid regurgitation present. Right vent ricular systolic pressure is normal at < 35 mmHg. There is no pulmonic regurgitation present. The aortic root size is normal. IVC Not well visulized. There is no pericardial effusion. CONCLUSIONS -------- 1. The left ventricular size is normal. 2. There is moderate concentric left ventricular hypertrophy. 3. Overall left ventricular systolic function is moderate-severely impaired with, an EF between 30 - 35 %. 4. Basal inferoseptal LV wall motion is hypokinetic. 5. Mid inferoseptal LV wall motion is hypokinetic. 6. Inferiorlateral Hypokinesis 7. Aortic valve is trileaflet and is mildly thickened. 8. There appears to be a small approximately 0.5cm echodenisty of the aortic valve, cannot rule out v egetation. Recommend SOPHIA if clincally indicated. 9. The mitral valve leaflets are mildly thickened. 10. Mild mitral regurgitation is present. 11. Mild tricuspid regurgitation present. 12. There is no pericardial effusion. NEUROPHYSIOLOGICAL TECHNICIAN: Jayda Damico RDCS
[2020-08-03 11:42] LABS: Glucose,Whole Blood 123 mg/dL (75-99)
[2020-08-03] MEDS: FUROSEMIDE 40 MG TAB PO SCH (11:47)
[2020-08-03] MEDS: TIOTROPIUM 18 MCG/PUFF INHALER INHALATION SCH (11:49)
[2020-08-03] MEDS: SODIUM CHLORIDE 0.9% 1,000 ML IV SCH (12:16)
--- NOTE | 2020-08-03 13:30 | P.CRDCN ---
History of Present Illness History of present illness: HISTORY OF PRESENTING ILLNESS This is a pleasant 65-year-old male past medical history significant for very artery disease status post four-vessel bypass grafting in 2005, peripheral vascular disease status post bilateral iliac stenting with bilateral lower extremity revascularization, carotid endarterectomy and recent stent placement thereafter, hypertension, dyslipidemia, former nicotine dependence, COPD and diabetes mellitus. He follows in the office with Ta. We have been asked to see in consultation for elevated troponin. He states yesterday while driving home from work he started feeling an acute onset of shortness of breath. His breathing was getting progressively worse as he was driving home. He has a [address] home[address] By the time he got home he could barely get out of his truck and into the house. When he did finally make it inside he checked his pulse oximetry was in the 70s. He attempted to use his inhalers however this did not improve his breathing. He does have oxygen at home milligrams at night which she applied and his oxygen level came up to the 90s. He denied having any associated chest pain, dizziness or palpitations. According to the patient he had a cardiac catheterization approximately 2 years ago with his primary representative phlebotomy services and was told that one of his grafts was down however he had collateral flow and he needed no further PCI at that point. DIAGNOSTICS EKG reveals sinus mechanism, ST depression and T-wave inversions noted in the lateral leads. Telemetry tracings indicate sinus mechanism. Chest xray diffuse increased lung markings pulmonary edema versus atypical pneumonia. Laboratory reviewed, CBC unremarkable, d-dimer 0.66, sodium 137, potassium 4.3, creatinine 0.68, magnesium 1.7, troponin 0.256, 0.281 and 0.226, NT proBNP 1460, LDL 1:30 and HDL 50. Current cardiac medications include aspirin 81 mg daily, Coreg 12.5 mg twice a day, Plavix 75 mg daily, enalapril 20 mg twice a day, Imdur 15 mg daily and simvastatin 40 mg at bedtime. REVIEW OF SYSTEMS At the time of my exam: CONSTITUTIONAL: Denies fever or chills. CARDIOVASCULAR: Denies chest pain, shortness of breath, orthopnea, PND or palpitations. RESPIRATORY: Complains of cough. GASTROINTESTINAL: Denies abdominal pain, diarrhea, constipation, nausea or vomiting. MUSCULOSKELETAL: Denies myalgias. NEUROLOGIC: Denies numbness, tingling or weakness. ENDOCRINE: Denies fatigue, weight change, polydipsia or polyurina. GENITOURINARY: Denies burning, hematuria or urgency with micturation. HEMATOLOGIC: Denies history of anemia or bleeding. PHYSICAL EXAMINATION Blood pressure 124/76 heart rate 72 afebrile and maintaining oxygen saturation o n room air. CONSTITUTIONAL: No apparent distress. HEENT: Head is normocephalic. Pupils are equal, round. Sclerae anicteric. Mucous membranes of the mouth are moist. No JVD. No carotid bruit. CHEST EXAMINATION: Scattered rhonchi, no rales or wheezes. No chest wall tenderness is noted on palpation or with deep breathing. HEART EXAMINATION: Regular rate and rhythm. S1, S2 heard. No murmurs, gallops or rub. ABDOMEN: Soft, nontender. Positive bowel sounds. EXTREMITIES: Faint peripheral pulses, no lower extremity edema, dusky discoloration bilaterally and no calf tenderness. NEUROLOGIC EXAMINATION: Patient is awake, alert and oriented x3. ASSESSMENT Shortness of breath, clinically patient appears euvolemic. Pneumonia should be considered. COVID negative. COPD Hypoxia Abnormal troponin due to oxygen supply and demand mismatch, type II myocardial infarction Hypertension Dyslipidemia Peripheral vascular disease Diabetes mellitus PLAN Clinically the patient is euvolemic. Check pro-calcitonin. Obtain 2-D echocardiogram and Doppler study to assess cardiac structure and function. Request records from his previous catheterization and echocardiogram. Decrease aspirin to 81 mg daily. Add small dose of oral diuretics, 40 mg in the morning and 20 mg in the afternoon. Thank you kindly for this consultation. Nurse Practitioner note has been reviewed, I agree with a documented findings and plan of care. Patient was seen and examined. Past Medical History Past Medical History: Coronary Artery Disease (CAD), Chest Pain / Angina, COPD, Diabetes Mellitus, Hyperlipidemia, Hypertension, Thyroid Disorder Additional Past Medical History / Comment(s): asthmatic bronchitis stage II/COPD History of Any Multi-Drug Resistant Organisms: None Reported Past Surgical History: Heart Catheterization With Stent Additional Past Surgical History / Comment(s): CARDIAC BYPASS X4, LEFT CAROTID SURGERY, L/R ILIAC ARTERY STENTS, L BICEPT TENDON REPAIR, L & R ROTATOR CUFF REPAIR Past Psychological History: No Psychological Hx Reported Smoking Status: Former smoker Past Alcohol Use History: Occasional Past Drug Use History: None Reported - Past Family History Father Family Medical History: Coronary Artery Disease (CAD), CVA/TIA Additional Family Medical History / Comment(s): CABG Mother Family Medical History: Cancer, Coronary Artery Disease (CAD) Medications and Allergies Home Medications Medication Instructions Recorded Confirmed Type Clopidogrel [Plavix] 75 mg PO DAILY 12/13/15 08/02/20 History Enalapril [Vasotec] 20 mg PO BID 12/13/15 08/02/20 History Levothyroxine Sodium [Synthroid] 25 mcg PO DAILY 12/13/15 08/02/20 History metFORMIN HCL [Glucophage] 1,000 mg PO BID 12/13/15 08/02/20 History Albuterol Sulfate [Proair Hfa] 2 puff INHALATION RT-QID PRN 07/02/18 08/02/20 History Glimepiride [Amaryl] 2 mg PO BID 07/02/18 08/02/20 History Aspirin EC [Ecotrin Low Dose] 81 mg PO DAILY 08/02/20 08/02/20 History Carvedilol [Coreg] 12.5 mg PO BID 08/02/20 08/02/20 History Famotidine [Pepcid] 20 mg PO DAILY 08/02/20 08/02/20 History Famotidine [Pepcid] 40 mg PO HS 08/02/20 08/02/20 History Fluticasone Propion/Salmeterol 1 puff INHALATION RT-BID 08/02/20 08/02/20 History [Fluticasone-Salmeterol 500-50] Isosorbide Mononitrate ER [Imdur] 15 mg PO DAILY 08/02/20 08/02/20 History Multivit-Min/FA/Lycopen/Lutein 1 tab PO DAILY 08/02/20 08/02/20 History [Centrum Silver Tablet] Simvastatin 40 mg PO HS 08/02/20 08/02/20 History Tiotropium Brush [Spiriva] 1 cap INHALATION RT-DAILY 08/02/20 08/02/20 History Zinc 50 mg PO DAILY 08/02/20 08/02/20 History Allergies Allergy/AdvReac Type Severity Reaction Status Date / Time bee venom protein (honey bee) Allergy Anaphylaxis Verified 08/02/20 13:31 Iodinated Contrast Media Allergy Rash/Hives Verified 08/02/20 13:31 iodine Allergy Rash/Hives Verified 08/02/20 13:31 Mushroom Allergy Unknown Verified 08/02/20 13:31 prednisone Allergy Unknown Verified 08/02/20 13:32 Physical Exam Vitals: Vital Signs Temp Pulse Pulse Resp BP BP Pulse Ox 08/03/20 04:00 97.8 F 69 16 141/63 95 08/03/20 02:00 18 08/03/20 00:00 97.8 F 86 18 156/74 97 08/02/20 20:00 98.4 F 84 18 176/76 97 08/02/20 16:09 98.3 F 85 18 188/89 97 08/02/20 13:17 75 20 171/82 97 08/02/20 11:48 22 08/02/20 11:21 98 F 71 18 171/82 95 Intake and Output 08/02/20 08/03/20 08/03/20 22:59 06:59 14:59 Intake Total 100.472 149.528 Balance 100.472 149.528 Intake: Intake, IV Titration 100.472 149.528 Amount Heparin Sod,Pork in 0.45% 100.472 149.528 NaCl 25,000 unit In 0.45 % NaCl 1 250ml.bag @ 8.81 UNITS/KG/HR 9.99 mls/hr IV .Q24H [facility] Rx#: [id number] Other: Voiding Method Toilet Toilet # Voids 1 2 Weight 113.398 kg 131.5 kg Results 08/02/20 11:50 08/02/20 11:50 Cardiac Enzymes 08/02/20 08/02/20 08/02/20 Range/Units 11:50 11:50 14:18 AST 44 (17-59) U/L Troponin I 0.256 H* 0.281 H* (0.000-0.034) ng/mL 08/02/20 Range/Units 17:22 AST (17-59) U/L Troponin I 0.226 H* (0.000-0.034) ng/mL Coagulation 08/02/20 08/02/20 08/03/20 Range/Units 11:50 20:14 02:40 PT 11.0 (9.0-12.0) sec APTT 23.6 33.9 H 50.9 H (22.0-30.0) sec Lipids 08/03/20 Range/Units 02:40 Triglycerides 108 (<150) mg/dL Cholesterol 202 H (<200) mg/dL HDL Cholesterol 50 (40-60) mg/dL CBC 08/02/20 Range/Units 11:50 WBC 9.3 (3.8-10.6) k/uL RBC 5.10 (4.30-5.90) m/uL Hgb 14.2 (13.0-17.5) gm/dL Hct 43.7 (39.0-53.0) % Plt Count 211 (150-450) k/uL Comprehensive Metabolic Panel 08/02/20 Range/Units 11:50 Sodium 137 (137-145) mmol/L Potassium 4.3 (3.5-5.1) mmol/L Chloride 102 (98-107) mmol/L Carbon Dioxide 29 (22-30) mmol/L BUN 11 (9-20) mg/dL Creatinine 0.68 (0.66-1.25) mg/dL Glucose 216 H (74-99) mg/dL Calcium 9.3 (8.4-10.2) mg/dL AST 44 (17-59) U/L ALT 50 H (4-49) U/L Alkaline Phosphatase 63 (38-126) U/L Total Protein 6.7 (6.3-8.2) g/dL Albumin 4.0 (3.5-5.0) g/dL Current Medications Generic Name Dose Route Start Last Admin Trade Name Freq PRN Reason Stop Dose Admin Albuterol Sulfate 2 puff 08/03/20 08:00 08/02/20 21:29 Albuterol Hfa Inhaler INHALATION 2 puff RT-QID [facility] Administration Aspirin 325 mg 08/03/20 09:00 Aspirin 325 Mg Tab PO DAILY [facility] Atorvastatin Calcium 20 mg 08/02/20 21:00 08/02/20 21:27 Atorvastatin 20 Mg Tab PO 20 mg HS [facility] Administration Budesonide/Formoterol Fumarate 2 puff 08/02/20 20:00 08/02/20 21:30 Symbicort 160-4.5 Mcg Inhaler INHALATION 2 puff RT-BID PAT[facility] Administration Carvedilol 12.5 mg 08/02/20 17:30 08/03/20 06:51 Carvedilol 12.5 Mg Tab PO 12.5 mg BID-W/MEALS PATRICK Administration Clopidogrel Bisulfate 75 mg 08/03/20 09:00 Clopidogrel 75 Mg Tab PO DAILY [facility] Famotidine 40 mg 08/02/20 21:00 08/02/20 21:27 Famotidine 20 Mg Tab PO 40 mg HS [facility] Administration Glimepiride 2 mg 08/02/20 17:30 08/02/20 17:23 Glimepiride 2 Mg Tab PO 2 mg BID-W/MEALS PATRICK Administration Heparin Sodium (Porcine) 0 unit 08/02/20 21:33 08/02/20 21:57 Heparin Sodium,Porcine 5,000 Unit/Ml 1 Ml Vial IV 4,000 unit PER PROTOCOL PRN Administration Low PTT Protocol Sodium Chloride 1,000 mls @ 20 mls/hr 08/02/20 14:00 08/02/20 14:06 Saline 0.9% IV 20 mls/hr .Q24H [facility] Administration Heparin Sodium/Sodium Chloride 250 mls @ 9.99 mls/hr 08/02/20 14:00 08/03/20 06:47 25,000 unit/ Sodium Chloride IV 15 units/kg/hr .Q24H [facility] 17.01 mls/hr Administration Protocol 8.81 UNITS/KG/HR Isosorbide Mononitrate 15 mg 08/03/20 09:00 Isosorbide Mononitrate Er 15 Mg Tab PO DAILY [facility] Levothyroxine Sodium 25 mcg 08/03/20 06:30 08/03/20 06:51 Levothyroxine 25 Mcg Tab PO 25 mcg DAILY@0630 PATRICK Administration Lisinopril 40 mg 08/02/20 21:00 08/02/20 21:27 Lisinopril 20 Mg Tab PO 40 mg BID PATRICK Administration Metformin HCl 1,000 mg 08/02/20 17:30 08/02/20 17:22 Metformin 500 Mg Tab PO 1,000 mg BID-W/MEALS PATRICK Administration Multivitamins 1 each 08/03/20 09:00 Multivitamins, Thera 1 Each Tab PO DAILY [facility] Nitroglycerin 0.4 mg 08/02/20 13:49 Nitroglycerin Sl Tabs 0.4 Mg Tab SUBLINGUAL Q5M PRN Chest Pain Tiotropium Brush 1 puff 08/03/20 08:00 Tiotropium 18 Mcg/Puff Inhaler INHALATION RT-DAILY [facility] Zinc Sulfate 220 mg 08/03/20 09:00 Zinc Sulfate 220 Mg Cap PO DAILY [facility] Intake and Output 08/02/20 08/03/20 08/03/20 22:59 06:59 14:59 Intake Total 100.472 149.528 Balance 100.472 149.528 Intake: Intake, IV Titration 100.472 149.528 Amount Heparin Sod,Pork in 0.45% 100.472 149.528 NaCl 25,000 unit In 0.45 % NaCl 1 250ml.bag @ 8.81 UNITS/KG/HR 9.99 mls/hr IV .Q24H [facility] Rx#: [id number] Other: Voiding Method Toilet Toilet # Voids 1 2 Weight 113.398 kg 131.5 kg 08/02/20 11:50 08/02/20 11:50
--- NOTE | 2020-08-03 14:07 | P.PN ---
Subjective Patient is a pleasant 65-year-old the male with known history of COPD uses 2 L of oxygen at nighttime came in with complains of shortness of breath denied any fever chills, was comparing of slight nonproductive cough chest x-ray did not show any pneumonia.Patient's oxygen saturations were as low as 74% which improved after using oxygen. Patient was wheezing quite a bit last night. Patient was given Solu-Medrol here in ER after which his wheezing resolved patient is feeling much better now. Although up on regular lab testing patient is found to have mildly elevated troponin of 0.2 patient does have history of coronary artery bypass grafting patient had an EKG which did show some acute ST- T wave changes in anterolateral leads along with the T-wave inversions in the same leads. Because of which patient is being admitted with IV heparin and cariology consult 08/03/2020 Patient is on oral Lasix at this time. Progesterone rate was ordered by cardiology. Chest x-ray is not consistent with atypical pneumonia and patient doesn't have fever or leukocytosis at this time. Further management of elevated troponins as per cardiology. She had echo cardiac exam which showed a decreased EF of around 30-35% with the wall motion abnormalities. Patient follows up with an outside office machine installer results of previous cardiac catheterization" milligrams are being obtained from a outside cardiology office. Constitutional: Denied any fatigue denied any fever. Cardio vascular: denied any chest pain, palpitations Gastrointestinal denied any nausea vomiting Pulmonary: Denied any shortness of breath cough Neurologic denied any new focal deficits All inpatient medications were reviewed and appropriate changes in these m edications as dictated in the interval history and assessment and plan. Objective - Vital Signs Vital signs: Vital Signs Temp 97.9 F 08/03/20 12:00 Pulse 72 08/03/20 12:00 Resp 18 08/03/20 12:00 BP 124/76 08/03/20 12:00 Pulse Ox 95 08/03/20 12:00 Intake & Output 08/02/20 08/03/20 08/03/20 18:59 06:59 18:59 Intake Total 250.000 180 Balance 250.000 180 Weight 113.398 kg 131.5 kg Intake: Intake, IV Titration 250.000 Amount Heparin Sod,Pork in 0.45% 250.000 NaCl 25,000 unit In 0.45 % NaCl 1 250ml.bag @ 8.81 UNITS/KG/HR 9.99 mls/hr IV .Q24H [facility] Rx#: [id number] Oral 180 Other: Voiding Method Toilet Toilet # Voids 2 - Exam PHYSICAL EXAMINATION: GENERAL: The patient is alert and oriented x3, not in any acute distress. Well developed, well nourished. HEENT: Pupils are round and equally reacting to light. EOMI. No scleral icterus. No conjunctival pallor. Normocephalic, atraumatic. No pharyngeal erythema. No thyromegaly. CARDIOVASCULAR: S1 and S2 present. No murmurs, rubs, or gallops. PULMONARY: Chest is clear to auscultation, no wheezing or crackles. ABDOMEN: Soft, nontender, nondistended, normoactive bowel sounds. No palpable organomegaly. MUSCULOSKELETAL: No joint swelling or deformity. EXTREMITIES: No cyanosis, clubbing, or pedal edema. NEUROLOGICAL: Gross neurological examination did not reveal any focal deficits. SKIN: No rashes. - Labs CBC & Chem 7: 08/02/20 11:50 08/02/20 11:50 Labs: Abnormal Lab Results - Last 24 Hours (Table) 08/02/20 08/02/20 08/02/20 Range/Units 14:18 16:25 17:22 APTT (22.0-30.0) sec POC Glucose (mg/dL) 154 H (75-99) mg/dL Troponin I 0.281 H* 0.226 H* (0.000-0.034) ng/mL Cholesterol (<200) mg/dL LDL Cholesterol, Calc (0-99) mg/dL 08/02/20 08/02/20 08/03/20 Range/Units 20:04 20:14 02:40 APTT 33.9 H (22.0-30.0) sec POC Glucose (mg/dL) 244 H (75-99) mg/dL Troponin I (0.000-0.034) ng/mL Cholesterol 202 H (<200) mg/dL LDL Cholesterol, Calc 130 H (0-99) mg/dL 08/03/20 08/03/20 08/03/20 Range/Units 02:40 06:26 11:41 APTT 50.9 H (22.0-30.0) sec POC Glucose (mg/dL) 126 H 123 H (75-99) mg/dL Troponin I (0.000-0.034) ng/mL Cholesterol (<200) mg/dL LDL Cholesterol, Calc (0-99) mg/dL Assessment and Plan Plan: -Troponin elevation: Possibility of non-ST elevation myocardial infarction cannot be ruled out. Cardiology evaluated the patient patient to can use to be on IV heparin awaiting documents from his primary office machine installer. -COPD with acute exacerbation of on admission presently resolved patient is not wheezing will not require any systemic steroids. - heart failure chronic systolic dysfunction with mild acute exacerbation: Gentle diuresis. Pro-calcitonin was ordered as a cardiology has concern about atypical pneumonia although clinically patient doesn't appear to have atypical pneumonia doesn't have any fever nor leukocytosis -Coronary artery disease with history of CABG in the past -Type 2 diabetes mellitus -hyperlipidemia -Hypertension -Hypothyroidism
[2020-08-03] MEDS ORDERED: FUROSEMIDE 20 MG TAB PO SCH (16:00)
[2020-08-03 16:41] LABS: Glucose,Whole Blood 90 mg/dL (75-99)
[2020-08-03] MEDS: FAMOTIDINE 20 MG TAB PO SCH (20:11)
[2020-08-03] MEDS: ATORVASTATIN 20 MG TAB PO SCH (20:11)
[2020-08-03 20:29] LABS: Glucose,Whole Blood 133 mg/dL (75-99)
[2020-08-04 03:15] VITALS: RESP 18
[2020-08-04 06:00] LABS: Glucose,Whole Blood 84 mg/dL (75-99)
[2020-08-04] MEDS: carvediloL 12.5 MG TAB PO SCH (06:06)
[2020-08-04] MEDS: GLIMEPIRIDE 2 MG TAB PO SCH (06:06)
[2020-08-04] MEDS: LEVOTHYROXINE 25 MCG TAB PO SCH (06:06)
[2020-08-04] MEDS: metFORMIN 500 MG TAB PO SCH (06:06)
[2020-08-04] MEDS ORDERED: ASPIRIN 81 MG PO SCH (09:00)
[2020-08-04] MEDS: ZINC SULFATE 220 MG CAP PO SCH (09:10)
[2020-08-04] MEDS: CLOPIDOGREL 75 MG TAB PO SCH (09:10)
[2020-08-04] MEDS: MULTIVITAMINS, THERA 1 EACH TAB PO SCH (09:10)
[2020-08-04] MEDS: ISOSORBIDE MONONITRATE ER 15 MG TAB PO SCH (09:10)
[2020-08-04] MEDS: lisinopriL 20 MG TAB PO SCH (09:10)
[2020-08-04] MEDS: FUROSEMIDE 40 MG TAB PO SCH (09:15)
[2020-08-04] MEDS: TIOTROPIUM 18 MCG/PUFF INHALER INHALATION SCH (09:28)
[2020-08-04] MEDS: ALBUTEROL HFA INHALER INHALATION SCH ×2 (09:28→12:09)
[2020-08-04] MEDS: SYMBICORT 160-4.5 MCG INHALER INHALATION SCH (09:28)
[2020-08-04 10:18] LABS: African American GFR (CKD) >90 (>60 ml/min/1.73 sqM); Anion Gap 7 mmol/L; Blood Urea Nitrogen 20 mg/dL (9-20); Calcium 9.7 mg/dL (8.4-10.2); Carbon Dioxide 34 mmol/L (22-30); Chloride 96 mmol/L (98-107); Glucose 104 mg/dL (74-99); Non-African American GFR(CKD) >90 (>60 ml/min/1.73 sqM); Potassium 4.6 mmol/L (3.5-5.1); Sodium 137 mmol/L (137-145)
[2020-08-04 10:22] LABS: Glucose,Whole Blood 120 mg/dL (75-99)
[2020-08-04 11:50] LABS: Glucose,Whole Blood 80 mg/dL (75-99)
--- NOTE | 2020-08-04 11:51 | P.PN ---
Subjective HISTORY OF PRESENTING ILLNESS This is a pleasant 65-year-old male past medical history significant for very artery disease status post four-vessel bypass grafting in 2006, peripheral vascular disease status post bilateral iliac stenting with bilateral lower extremity revascularization, carotid endarterectomy and recent stent placement thereafter, hypertension, dyslipidemia, former nicotine dependence, COPD and diabetes mellitus. He follows in the office with Ta. He seen and examined sitting up in the chair in no acute distress. He denies any worsening shortness of breath. He has no symptoms of chest pain, dizziness or palpitations. Overall he feels back to baseline. Blood pressure 132/63 heart rate 70 afebrile maintaining oxygen saturation on room air, laboratory data reviewed, Broca's atone and 0.05, sodium 137, potassium 4.6 and creatinine 0.87. Echocardiogram obtained reveals impaired LV systolic function with ejection fraction 30-35%, basal inferoseptal, mid inferoseptal and inferolateral wall motion hypokinesia. PHYSICAL EXAMINATION CONSTITUTIONAL: No apparent distress. HEENT: Head is normocephalic. Pupils are equal, round. Sclerae anicteric. Mucous membranes of the mouth are moist. No JVD. No carotid bruit. CHEST EXAMINATION: Scattered rhonchi, no rales or wheezes. No chest wall tenderness is noted on palpation or with deep breathing. HEART EXAMINATION: Regular rate and rhythm. S1, S2 heard. No murmurs, gallops or rub. EXTREMITIES: Faint peripheral pulses, no lower extremity edema, dusky d iscoloration bilaterally and no calf tenderness. ASSESSMENT Shortness of breath, clinically patient appears euvolemic. Pneumonia should be considered. COVID negative. Chronic systolic heart failure, clinically euvolemic COPD Hypoxia Abnormal troponin due to oxygen supply and demand mismatch, type II myocardial infarction Hypertension Dyslipidemia Peripheral vascular disease Diabetes mellitus PLAN Continue current medical regimen. Stable for discharge from a cardiac perspective. Follow-up with his primary power digger operator next week. Nurse Practitioner note has been reviewed, I agree with a documented findings and plan of care. Patient was seen and examined. Objective - Vital Signs Vital signs: Vital Signs Temp 97.9 F 08/04/20 08:00 Pulse 70 08/04/20 08:00 Resp 18 08/04/20 08:00 BP 132/63 08/04/20 08:00 Pulse Ox 92 L 08/04/20 08:00 Intake & Output 08/03/20 08/04/20 08/04/20 18:59 06:59 18:59 Intake Total 360 240 660 Output Total 1400 650 700 Balance -1040 -410 -40 Weight 129 kg Intake: Oral 360 240 660 Output: Urine 1400 650 700 Other: Voiding Method Toilet Toilet Toilet # Voids 2 1 - Labs CBC & Chem 7: 08/02/20 11:50 08/04/20 09:10 Labs: Abnormal Lab Results - Last 24 Hours (Table) 08/03/20 08/04/20 08/04/20 Range/Units 20:27 09:10 10:18 Chloride 96 L (98-107) mmol/L Carbon Dioxide 34 H (22-30) mmol/L Glucose 104 H (74-99) mg/dL POC Glucose (mg/dL) 133 H 120 H (75-99) mg/dL
[2020-08-04 12:27] VITALS: TEMP 98.1
[2020-08-04 15:08] VITALS: BP 137/64; PULSE 68
[2020-08-04] MEDS: SODIUM CHLORIDE 0.9% 1,000 ML IV SCH (15:26)
--- NOTE | 2020-08-04 16:55 | P.CNPUL ---
History of Present Illness Consult date: 08/04/20 Reason for consult: dyspnea History of present illness: 65-year-old male patient with known history of coronary artery disease and previous bypass surgery back in 2005 in addition to known history of peripheral vascular disease and previous bilateral iliac artery stenting and lower extremity revascularization, carotid artery disease with previous carotid artery stenting and hypertension and hyperlipidemia and COPD and diabetes mellitus. Th e patient came into the hospital because of an acute shortness of breath. The patient felt short of breath when driving from work. Breathing got progressively worse. By the time he arrived home, he was quite short of breath. The patient came in his house where he uses inhalers he was not improving. His pulse ox was low. He has oxygen at home and he applied oxygen himself bring his saturation above 90%. No reported chest pain. No dizziness. No palpitation. No syncope. His last cardiac catheterization was 2 years ago with journeyman patternmaker and he apparently had one of the grafts occluded with collateral circulation. There was no intervention done. In the hospital, the patient is a 62 that showed diffuse interstitial markings bilaterally/pulmonary edema. EKG showed ST segment depression to his inversions on the lateral leads into the normal sinus rhythm. His laboratory workup showed a normal CBC, his sodium was 137, creatinine of 0.6, troponin of 0.25, 0.28 and 0.22 respectively 3, a proBNP level of 1460 and a d-dimer of 0.66. . The patient was hospitalized. He was started on IV heparin and a cardiology consultation was requested. A pulmonary consultation was also requested. The patient's coronavirus/Covid 19 nasal swab came back negative on 2 separate occasions, last one being on 08/02/2020. Review of Systems Constitutional: Denies chills, Denies fever Eyes: denies as per HPI, denies blurred vision, denies bulging eye, denies decreased vision, denies diplopia, denies discharge, denies dry eye, denies irritation, denies itching, denies pain, denies photophobia, denies loss of peripheral vision, denies loss of vision, denies tunnel vision/blind spots Ears: deny: decreased hearing, ear discharge, earache, tinnitus Ears, nose, mouth and throat: Reports as per HPI Breasts: absent: as per HPI, gynecomastia Cardiovascular: Reports claudication, Reports decreased exercise tolerance, Reports dyspnea on exertion Respiratory: Reports dyspnea Gastrointestinal: Reports as per HPI Genitourinary: Reports as per HPI Musculoskeletal: absent: ankle pain, ankle stiffness, ankle swelling Integumentary: Reports as per HPI Neurological: Reports as per HPI Psychiatric: Reports as per HPI Endocrine: Reports as per HPI Hematologic/Lymphatic: Reports as per HPI Allergic/Immunologic: Reports as per HPI Past Medical History Past Medical History: Coronary Artery Disease (CAD), Chest Pain / Angina, Heart Failure, COPD, Diabetes Mellitus, Hyperlipidemia, Hypertension, Thyroid Disorder Additional Past Medical History / Comment(s): asthmatic bronchitis stage II/COPD History of Any Multi-Drug Resistant Organisms: None Reported Past Surgical History: Heart Catheterization With Stent Additional Past Surgical History / Comment(s): CARDIAC BYPASS X4, LEFT CAROTID SURGERY, L/R ILIAC ARTERY STENTS, L BICEPT TENDON REPAIR, L & R ROTATOR CUFF REPAIR Past Psychological History: No Psychological Hx Reported Smoking Status: Former smoker Past Alcohol Use History: Occasional Past Drug Use History: None Reported - Past Family History Father Family Medical History: Coronary Artery Disease (CAD), CVA/TIA Additional Family Medical History / Comment(s): CABG Mother Family Medical History: Cancer, Coronary Artery Disease (CAD) Medications and Allergies Home Medications Medication Instructions Recorded Confirmed Type Clopidogrel [Plavix] 75 mg PO DAILY 12/13/15 08/02/20 History Enalapril [Vasotec] 20 mg PO BID 12/13/15 08/02/20 History Levothyroxine Sodium [Synthroid] 25 mcg PO DAILY 12/13/15 08/02/20 History metFORMIN HCL [Glucophage] 1,000 mg PO BID 12/13/15 08/02/20 History Albuterol Sulfate [Proair Hfa] 2 puff INHALATION RT-QID PRN 07/02/18 08/02/20 History Glimepiride [Amaryl] 2 mg PO BID 07/02/18 08/02/20 History Aspirin EC [Ecotrin Low Dose] 81 mg PO DAILY 08/02/20 08/02/20 History Carvedilol [Coreg] 12.5 mg PO BID 08/02/20 08/02/20 History Famotidine [Pepcid] 20 mg PO DAILY 08/02/20 08/02/20 History Famotidine [Pepcid] 40 mg PO HS 08/02/20 08/02/20 History Fluticasone Propion/Salmeterol 1 puff INHALATION RT-BID 08/02/20 08/02/20 History [Fluticasone-Salmeterol 500-50] Isosorbide Mononitrate ER [Imdur] 15 mg PO DAILY 08/02/20 08/02/20 History Multivit-Min/FA/Lycopen/Lutein 1 tab PO DAILY 08/02/20 08/02/20 History [Centrum Silver Tablet] Simvastatin 40 mg PO HS 08/02/20 08/02/20 History Tiotropium Dunnigan [Spiriva] 1 cap INHALATION RT-DAILY 08/02/20 08/02/20 History Zinc 50 mg PO DAILY 08/02/20 08/02/20 History Furosemide [Lasix] 40 mg PO DAILY #30 tab 08/04/20 Rx Allergies Allergy/AdvReac Type Severity Reaction Status Date / Time bee venom protein (honey bee) Allergy Anaphylaxis Verified 08/02/20 13:31 Iodinated Contrast Media Allergy Rash/Hives Verified 08/02/20 13:31 iodine Allergy Rash/Hives Verified 08/02/20 13:31 Mushroom Allergy Unknown Verified 08/02/20 13:31 prednisone Allergy Unknown Verified 08/02/20 13:32 Physical Exam Vitals: Vital Signs Temp Pulse Resp BP Pulse Ox 08/04/20 15:08 68 18 137/64 97 08/04/20 14:00 77 18 08/04/20 12:00 98.1 F 77 18 150/73 96 08/04/20 08:00 97.9 F 70 18 132/63 92 L 08/04/20 03:14 98.4 F 60 18 124/68 99 08/04/20 02:00 66 20 08/04/20 00:00 66 20 122/74 95 08/03/20 21:05 97 08/03/20 20:00 98.6 F 70 18 126/70 95 Intake and Output 08/04/20 08/04/20 08/04/20 06:59 14:59 22:59 Intake Total 660 Output Total 650 700 Balance -650 -40 Intake: Oral 660 Output: Urine 650 700 Other: Voiding Method Toilet Toilet # Voids 1 Weight 129 kg GENERAL: The patient is alert and oriented x3, not in any acute distress. Well developed, well nourished. HEENT: Pupils are round and equally reacting to light. EOMI. No scleral icterus. No conjunctival pallor. Normocephalic, atraumatic. No pharyngeal erythema. No thyromegaly. CARDIOVASCULAR: S1 and S2 present. No murmurs, rubs, or gallops. PULMONARY: Chest is clear to auscultation, no wheezing or crackles. Thoracotomy scar over the anterior chest ABDOMEN: Soft, nontender, nondistended, normoactive bowel sounds. No palpable organomegaly. MUSCULOSKELETAL: No joint swelling or deformity. EXTREMITIES: No cyanosis, clubbing, or pedal edema. NEUROLOGICAL: Gross neurological examination did not reveal any focal deficits. SKIN: No rashes. Results - Laboratory Findings CBC and BMP: 08/02/20 11:50 08/04/20 09:10 PT/INR, D-dimer PT 11.0 sec (9.0-12.0) 08/02/20 11:50 INR 1.1 (<1.2) 08/02/20 11:50 D-Dimer 0.66 mg/L FEU (<0.60) H 08/02/20 11:50 Abnormal lab findings: Abnormal Labs 08/02/20 08/02/20 08/02/20 11:50 11:50 11:50 APTT D-Dimer 0.66 H Chloride Carbon Dioxide Glucose 216 H POC Glucose (mg/dL) ALT 50 H Troponin I 0.256 H* Cholesterol LDL Cholesterol, Calc 08/02/20 08/02/20 08/02/20 14:18 16:25 17:22 APTT D-Dimer Chloride Carbon Dioxide Glucose POC Glucose (mg/dL) 154 H ALT Troponin I 0.281 H* 0.226 H* Cholesterol LDL Cholesterol, Calc 08/02/20 08/02/20 08/03/20 20:04 20:14 02:40 APTT 33.9 H D-Dimer Chloride Carbon Dioxide Glucose POC Glucose (mg/dL) 244 H ALT Troponin I Cholesterol 202 H LDL Cholesterol, Calc 130 H 08/03/20 08/03/20 08/03/20 02:40 06:26 11:41 APTT 50.9 H D-Dimer Chloride Carbon Dioxide Glucose POC Glucose (mg/dL) 126 H 123 H ALT Troponin I Cholesterol LDL Cholesterol, Calc 08/03/20 08/04/20 08/04/20 20:27 09:10 10:18 APTT D-Dimer Chloride 96 L Carbon Dioxide 34 H Glucose 104 H POC Glucose (mg/dL) 133 H 120 H ALT Troponin I Cholesterol LDL Cholesterol, Calc - Diagnostic Findings Chest x-ray: image reviewed Assessment and Plan Plan: 1 Acute non-ST elevation myocardial infarction 2 Acute Systolic heart failure with secondary shortness of breath 3 acute hypoxic respiratory failure secondary to above, improved with diuresis and the patient is currently on room air oxygen 4 COPD, steroid-dependent on a combination of Advair and Spiriva on outpatient basis 5 coronary artery disease with previous coronary artery bypass surgery 6 peripheral vascular disease 7 carotid artery disease with previous stenting 8 diabetes mellitus type 2 9 hypertension 10 hypothyroidism Plan The patient's primary status is stable. Recommended continuing the Spiriva for now regarding his COPD in combination with Advair Diskus 500/50 one puff twice a day and he's been utilizing this medication on outpatient basis. The patient also has home O2 that he wears on an as-needed basis especially at nighttime. This medication will be continued and there is no signs of any COPD exacerbation this point in time. Awaiting further input from cardiology regarding the acute non-STEMI. He will need probably more investigation including another cardiac catheterization to evaluate his coronary anatomy. I will leave it up to cardiology. From the pulmonary standpoint, his COPD stable. I'm going to sign off the case and leave the rest of the management up to cardiology. Note that his coronavirus/Covid 19 PCR came back negative on 2 separate occasions. His proBNP level is slightly elevated.
--- NOTE | 2020-08-06 12:56 | CDI ---
Documentation Clarification Form Date: 08/06/2020 12:44:00 PM From: Janice Solares Phone: If you have a question about this query, please contact Tere Vázquez Power System Engineer at [phone] between 8am and 5pm. Admit Date: 08/02/2020 01:49:00 PM Patient Name: Osvaldo Saravia Visit Number: [id number] Discharge Date: 08/04/2020 03:48:00 PM ATTENTION: The Clinical Documentation Specialists (CDI) and [facility] Coding Staff appreciate your assistance in clarifying documentation. Please respond to the clarification below the line at the bottom and electronically sign. The CDI & [facility] Coding staff will review the response and follow-up if needed. Please note: Queries are made part of the Legal Health Record. If you have any questions, please contact the author of this message via ITS. Dr. Darius Coughlin Conflicting documentation has been found in the medical record ER notes and Pulmonary 08/04 PN document patient with Acute NSTEMI. Cardiology consult and PN document Type II LA oxygen supply and demand mismatch. H and P documents Possibility of NSTEMI microinfarction cannot be ruled out. Please clarify if patient had an NSTEMI, NSTEMI ruled out, NSTEMI Type II. If type II please clarify cause. History/Risk Factors: CAD History of CABG, PVD, CHF, HTN Clinical Indicators: Elevation in troponins - .256, .281, .226 Treatment: IV heparin In your opinion, what is the most clinically appropriate diagnosis for this patient? Acute NSTEMI Type II LA (if so please clarify cause) NSTEMI ruled out Other explanation of clinical findings Unable to determine (no explanation for clinical findings) Query will be more appropriate for cardiology MTDD
--- NOTE | 2020-08-09 15:41 | CDI ---
Documentation Clarification Form Date: 08/09/2020 From: Tere Vázquez Phone: If questions, call [phone] janna 8 am and 5pm. Admit Date: 08/02/2020 01:49:00 PM Patient Name: Osvaldo Saravia Visit Number: [id number] Discharge Date: 08/04/2020 03:48:00 PM ATTENTION: The Clinical Documentation Specialists (CDI) and [facility] Coding Staff appreciate your assistance in clarifying documentation. Please respond to the clarification below the line at the bottom and electronically sign. The CDI & [facility] Coding staff will review the response and follow-up if needed. Please note: Queries are made part of the Legal Health Record. If you have any questions, please contact the author of this message via ITS. Dr. Analisa Cortes Conflicting documentation has been found in the medical record: ER notes and Pulmonary 08/04 prg note document patient with NSTEMI. H & P documents -Possibility of NSTEMI microinfarction cannot be ruled out. Cardiology consult and prog note document Type II SD oxygen supply and demand mismatch. History/Risk Factors: CAD History of CABG, PVD, CHF, HTN Clinical Indicators: Elevation in troponins - .256, .281, .226 Treatment: IV heparin As corporate general manager, the attending has requested that you provide the final determination of type of SD for this patient. Acute NSTEMI Type II SD (if so please clarify cause) NSTEMI ruled out Other explanation of clinical findings NSTEMI ruled out MTDD
== END 2020-08-04 15:48 | disposition home or self-care (01) | DRG 291 ==
LOC: EC 11:20 → 3SCARD 13:49
PROVIDERS: ADMIT Internal Medicine; ATTEND Internal Medicine
DX: I11.0 Hypertensive heart disease with heart failure (principal); J96.01 Acute respiratory failure with hypoxia; J44.1 Chronic obstructive pulmonary disease with (acute) exacerbation; E03.9 Hypothyroidism, unspecified; E11.51 Type 2 diabetes mellitus with diabetic peripheral angiopathy without gangrene; I70.219 Atherosclerosis of native arteries of extremities with intermittent claudication, unspecified extremity; Z79.84 Long term (current) use of oral hypoglycemic drugs; E78.5 Hyperlipidemia, unspecified; I25.10 Atherosclerotic heart disease of native coronary artery without angina pectoris; I50.23 Acute on chronic systolic (congestive) heart failure; Z20.828 Contact with and (suspected) exposure to other viral communicable diseases; Z79.02 Long term (current) use of antithrombotics/antiplatelets; Z79.82 Long term (current) use of aspirin; Z79.890 Hormone replacement therapy; Z79.899 Other long term (current) drug therapy; Z82.49 Family history of ischemic heart disease and other diseases of the circulatory system; Z87.891 Personal history of nicotine dependence; Z95.1 Presence of aortocoronary bypass graft; Z95.828 Presence of other vascular implants and grafts; Z88.8 Allergy status to other drugs, medicaments and biological substances; Z91.030 Bee allergy status; Z91.041 Radiographic dye allergy status; Z79.52 Long term (current) use of systemic steroids; Z99.81 Dependence on supplemental oxygen
CPT/HCPCS: 36415; 71046; 80048; 80053; 80061; 82550; 83605; 83735; 83880; 84145; 84484; 85025; 85379; 85610; 85730; 87635; 93005; 93306; 94640; 94760; 96365; 96375; 96376; 99291

== ENCOUNTER → 2021-01-24 | Outpatient (CLI) | payer BC ==
--- NOTE | 2021-01-25 15:54 | CTL ---
EXAMINATION TYPE: CT Low Dose Lung DATE OF EXAM ORDERED: 01/24/2021 HISTORY: Personal tobacco use. Lung cancer screening CT DLP: 146.[address] CTDI: 4.0 mGy Automated exposure control for dose reduction was used. SCREENING VISIT: Initial COMPARISON: 12/14/2015 TECHNIQUE: Low dose computed tomography scan was performed through the chest at 1 mm thick sections a nd reconstructed images in the coronal plane at [address] DIAGNOSTIC QUALITY: Satisfactory FINDINGS: LUNG NODULES: Present, detailed below: There is a 0.4 cm area of pneumonitis in the lingula. Series 4 image 141 Compressive atelectasis is within the dependent lung bases bilaterally LUNGS: COPD: Severity: Mild Fibrosis: Severity: Minimal Lymph nodes: There is a 1.3 cm lymph node in the pretracheal space. Series 5 image 22 Other findings: None RIGHT PLEURAL SPACE: Effusion: None Calcification: None Thickening: None Pneumothorax: None LEFT PLEURAL SPACE: Effusion: None Calcification: None Thickening: None Pneumothorax: None HEART: Heart Size: Normal Coronary calcification: Moderate Pericardial effusion: None OTHER FINDINGS: Upper abdomen: Normal Bony thorax: Normal Supraclavicular region: Normal Other: Ascending thoracic aorta at the level the main pulmonary artery measures 3.9 cm. The main pul monary artery at the bifurcation measures 3.0 cm. IMPRESSION: Benign appearance FOLLOW UP CT CHEST RECOMMENDATION: Low dose CT chest one year CT LUNG RAD: Lung-Rad 2 Benign Appearance or Behavior
== END | disposition home or self-care (01) ==
LOC: RADCTMAIN 17:14
PROVIDERS: ATTEND Internal Medicine Critical Care Medicine
DX: Z12.2 Encounter for screening for malignant neoplasm of respiratory organs (principal); Z87.891 Personal history of nicotine dependence
CPT/HCPCS: 71271

== ENCOUNTER 2021-04-24 20:19 | Inpatient (IN) | payer BC ==
[2021-04-24] MEDS ORDERED: ASPIRIN 81 MG PO STA (20:25)
[2021-04-24] MEDS ORDERED: FUROSEMIDE 10 MG/ML 4 ML VIAL IV STA (20:26)
[2021-04-24] MEDS ORDERED: NITROGLYCERIN-D5W PMX 50 MG in DEXTROSE/WATER 1 250ML.BAG IV ONE (20:28)
[2021-04-24] MEDS ORDERED: niCARdipine 20 MG in SODIUM CHLORIDE 0.9% 192 ML IV SCH (20:30)
[2021-04-24 20:52] LABS: Basophils # (A) 0.1 k/uL (0-0.2); Basophils % (A) 1 %; Eosinophils # (A) 0.3 k/uL (0-0.7); Eosinophils % (A) 2 %; HCT 53.7 % (39.0-53.0); Hypochromasia Slight; Lymphocytes # (A) 3.6 k/uL (1.0-4.8); Lymphocytes % (A) 23 %; MCH 29.1 pg (25.0-35.0); MCHC 31.7 g/dL (31.0-37.0); MCV 91.8 fL (80.0-100.0); Mean Platelet Volume 8.1; Monocytes # (A) 0.9 k/uL (0-1.0); Monocytes % (A) 5 %; Neutrophils # (A) 10.7 k/uL (1.3-7.7); Neutrophils % (A) 67 %; Platelet Count 306 k/uL (150-450); RBC 5.85 m/uL (4.30-5.90); RDW 14.1 % (11.5-15.5)
[2021-04-24 20:58] LABS: ABG Base Excess -1.8 mmol/L; ABG HCO3 24 mmol/L (21-25); ABG Oxygen Saturation 99.6 % (94-97); ABG PCO2 42 mmHg (35-45); ABG PH 7.36 (7.35-7.45); ABG PO2 206 mmHg (83-108); ABG TCO2 25 mmol/L (19-24); Allen Test Performed? Yes
[2021-04-24 21:01] LABS: INR 1.1 (<1.2); Prothrombin Time 11.6 sec (9.0-12.0)
[2021-04-24 21:05] LABS: ALT 41 U/L (4-49); AST 57 U/L (17-59); African American GFR (CKD) >90 (>60 ml/min/1.73 sqM); Albumin 4.8 g/dL (3.5-5.0); Alkaline Phosphatase 81 U/L (38-126); Anion Gap 15 mmol/L; Blood Urea Nitrogen 17 mg/dL (9-20); Calcium 9.6 mg/dL (8.4-10.2); Carbon Dioxide 22 mmol/L (22-30); Chloride 103 mmol/L (98-107); Glucose 293 mg/dL (74-99); Magnesium 1.6 mg/dL (1.6-2.3); Non-African American GFR(CKD) >90 (>60 ml/min/1.73 sqM); Sodium 140 mmol/L (137-145); Total Bilirubin 0.9 mg/dL (0.2-1.3); Total Protein 7.7 g/dL (6.3-8.2)
[2021-04-24 21:06] LABS: Partial Thromboplastin Time 21.9 sec (22.0-30.0)
--- NOTE | 2021-04-24 21:13 | XR ---
EXAMINATION TYPE: XR chest 1V portable DATE OF EXAM: 04/24/2021 COMPARISON: 08/02/2020 HISTORY: Chest pain TECHNIQUE: FINDINGS: There is moderate pulmonary interstitial edema. There is some coalescent density right midlung. Heart is enlarged. There are sternal wires. There are chest leads. IMPRESSION: Again increased pulmonary interstitial edema compared to old exam. This could be congestive heart jose antonio lure. Bronchopneumonia also possible in the right lower lobe.
--- NOTE | 2021-04-24 21:14 | ED ---
General Adult HPI - General Chief complaint: Shortness of Breath Stated complaint: LIN Time Seen by Provider: 04/24/21 20:25 Source: EMS Mode of arrival: EMS Limitations: no limitations - History of Present Illness Initial comments: Patient is a 66-year-old male with past medical history remarkable for heart failure, hypertension, hyperlipidemia, COPD, CAD, asthma and bronchitis, thyroid disorder, prior cardiac stenting presents emergency Department complaining of acute onset of shortness of breath. 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 States he hasn't missed any doses of his medications. He denies any cough, fevers, abdominal pain, nausea, vomiting. EMS arrived and was concerned and he was found to be hy poxic into the 60%'s. Blood pressure was systolics in the 200s. They provided the patient with 2 sublingual nitroglycerin tablets and placed him on CPAP and brought him to the emergency department for evaluation. They were able to lower his blood pressure to 190s to 200s systolic. Patient is feeling somewhat improved but is requesting a new CPAP mask. Patient otherwise has no other acute complaints at this time. Denies any orthopnea, worsening exertional dyspnea, lower extremity edema over the course of the last few days. Denies any fevers or chills or cough or sick contacts. States he was vaccinated for COVID- 19. Denies any headache or lightheadedness. Denies any change in urination. His no other acute complaint at this time. - Related Data Home Medications Medication Instructions Recorded Confirmed Clopidogrel [Plavix] 75 mg PO DAILY 12/13/15 04/24/21 Levothyroxine Sodium [Synthroid] 25 mcg PO DAILY 12/13/15 04/24/21 metFORMIN HCL [Glucophage] 1,000 mg PO BID 12/13/15 04/24/21 Albuterol Sulfate [Proair Hfa] 2 puff INHALATION RT-QID PRN 07/02/18 04/24/21 Glimepiride [Amaryl] 2 mg PO BID 07/02/18 04/24/21 Aspirin EC [Ecotrin Low Dose] 81 mg PO DAILY 08/02/20 04/24/21 Carvedilol [Coreg] 12.5 mg PO BID 08/02/20 04/24/21 Famotidine [Pepcid] 20 mg PO DAILY 08/02/20 04/24/21 Fluticasone Propion/Salmeterol 1 puff INHALATION RT-BID 08/02/20 04/24/21 [Fluticasone-Salmeterol 500-50] Multivit-Min/FA/Lycopen/Lutein 1 tab PO DAILY 08/02/20 04/24/21 [Centrum Silver Tablet] Zinc 50 mg PO DAILY 08/02/20 04/24/21 Albuterol Nebulized [Ventolin 2.5 mg INHALATION Q6H PRN 04/24/21 04/24/21 Nebulized] EPINEPHrine (Auto Inject) [Epipen] 0.3 mg IM ONCE PRN 04/24/21 04/24/21 Furosemide [Lasix] 20 mg PO DAILY 04/24/21 04/24/21 Rosuvastatin Calcium [Crestor] 40 mg PO HS 04/24/21 04/24/21 Sacubitril/Valsartan [Entresto 49 1 tab PO BID 04/24/21 04/24/21 mg-51 mg Tablet] Sildenafil Citrate [Viagra] 100 mg PO DAILY PRN 04/24/21 04/24/21 Testosterone Cypionate 200 mg IM DIRECTED 04/24/21 04/24/21 [Depo-Testosterone] Tiotropium 2.5 Mcg/Puff [Spiriva 2 puff INHALATION RT-DAILY 04/24/21 04/24/21 Respimat 2.5 Mcg] Allergies Allergy/AdvReac Type Severity Reaction Status Date / Time bee venom protein (honey bee) Allergy Anaphylaxis Verified 04/24/21 21:26 Iodinated Contrast Media Allergy Rash/Hives Verified 04/24/21 21:26 iodine Allergy Rash/Hives Verified 04/24/21 21:26 Mushroom Allergy Unknown Verified 04/24/21 21:26 prednisone Allergy Unknown Verified 04/24/21 21:26 Review of Systems ROS Statement: Those systems with pertinent positive or pertinent negative responses have been documented in the HPI. Review of Systems: CONST: Denies fever EYES: Denies blurry vision ENT: Denies nasal congestion C/V: Denies Chest pain RESP: Endorses shortness of breath GI: Denies abdominal pain : Denies dysuria SKIN: Denies rash. MSK: Denies joint pain. NEURO: Denies headache ROS Other: All systems not noted in ROS Statement are negative. Past Medical History Past Medical History: Coronary Artery Disease (CAD), Chest Pain / Angina, Heart Failure, COPD, Diabetes Mellitus, Hyperlipidemia, Hypertension, Thyroid Disorder Additional Past Medical History / Comment(s): asthmatic bronchitis stage II/COPD History of Any Multi-Drug Resistant Organisms: None Reported Past Surgical History: Heart Catheterization With Stent Additional Past Surgical History / Comment(s): CARDIAC BYPASS X4, LEFT CAROTID SURGERY, L/R ILIAC ARTERY STENTS, L BICEPT TENDON REPAIR, L & R ROTATOR CUFF REPAIR Past Psychological History: No Psychological Hx Reported Smoking Status: Former smoker Past Alcohol Use History: Occasional Past Drug Use History: None Reported - Past Family History Father Family Medical History: Coronary Artery Disease (CAD), CVA/TIA Additional Family Medical History / Comment(s): CABG Mother Family Medical History: Cancer, Coronary Artery Disease (CAD) General Exam - General Exam Comments Initial Comments: General: Appears in significant respiratory distress. HEAD: Normal with no signs of head trauma. EYES: PERRLA, EOMI, conjunctiva normal, no discharge. ENT: Hearing grossly intact, normal oropharynx. RESPIRATORY: Patient has crackles in bilateral lung bases. No wheezes appreciated. He is moving air bilaterally equally. He is tachypneic with signs of respiratory distress including retractions. His, diaphoretic. C/V: She is tachycardic with regular rhythm. S1 and S2 auscultated. Patient has 1+ pitting edema in the bilateral lower extremities. Peripheral pulses are 2+ intact throughout. ABD: Abd is soft, nontender, nondistended EXT: Normal range of motion, no obvious deformity SKIN: No rashes or lesions observed on exposed skin. NEURO: Alert and oriented 4. Limitations: no limitations Course Vital Signs 04/24/21 04/24/21 04/24/21 20:21 20:28 20:30 Temperature 98.2 F Pulse Rate 126 H 125 H Pulse Rate [ 120 H Unit Secretary ] Respiratory 20 25 H 27 H Rate Blood Pressure 193/112 203/116 O2 Sat by Pulse 90 L 95 Oximetry 04/24/21 04/24/21 04/24/21 20:53 21:16 22:02 Temperature Pulse Rate 113 H 107 H 92 Pulse Rate [ Unit Secretary ] Respiratory 20 24 18 Rate Blood Pressure 177/93 139/69 118/60 O2 Sat by Pulse 96 93 L 93 L Oximetry Procedures - ABG Interpretation Ph: 7.36 PCO2: 42 PO2: 206 Bicarbonate: 24 Interpretation: normal Additional Comments: on bipap Medical Decision Making - Medical Decision Making Based on the patient's presentation and physical exam, I'm concerned for possible cardiac etiology for his current symptoms. Cardiopulmonary etiology at this time. He is likely transient heart failure exacerbation versus COPD exacerbation, however it does appear to be more heart failure in nature. His no wheezing on exam. He appears to be having a hypertensive emergency with flash pulmonary edema as well. Upon arrival, patient was immediately transitioned to BiPAP with respiratory present. We'll obtain cardiac laboratory studies. EKG was obtained and was difficult to interpret due to baseline artifact and we will repeat EKG at a later time. It showed no obvious signs of acute ischemia at this time. [id number] ultrasound was performed by myself which revealed bilateral B lines in all lung sanderson. This is concerning for pulmonary edema. Patient was administered 40 mg of IV Lasix in the resuscitation bay and was started on nitroglycerin drip. ABG was also ordered. Patient was beginning to improve and felt more comfortable. Oxygen saturation saturations which were in the 60%'s when he was moved to room air, and into the 90%. Tachycardia was improving. Blood pressure was also improving. Patient's repeat EKG showed no acute signs of ischemia and showed chronic changes. Patient's chest x-ray revealed increased pulmonary interstitial edema which is likely secondary to CHF. Laboratory studies are remarkable for a mild leukocytosis of 16.0 which is likely reactive. Patient's ABG on BiPAP was unremarkable, with the pH is 7.36, pCO2 42, pO2 206, bicarbonate 24. Patient's troponin initially is indeterminate at 0.022. BNP is elevated to over 2000. The remainder of his labs are unremarkable. On reevaluation, we are able to down titrate the patient's nitroglycerin drip. Blood pressures are improved, now with systolics in the 150s to 160s. Patient is saturating well on BiPAP. He is more comfortable at this time. I did disc uss with him that he believes he expressed an episode of hypertensive emergency resulting in her for exacerbation versus flash pulmonary edema. I do believe it is best for him to be admitted to the hospital. He was in agreement this plan. I consult to cardiology to evaluate patient in the morning. I spoke with the admitting team [facility] with Aditi Angulo who accepted the admission. I spoke with the critical care doctor to admit the patient to the ICU on the nitroglycerin drip for hypertensive emergency, Dr. Sanchez who is also the patient's supervisor mixing and he accepted the patient. Patient was therefore admitted and serous condition on telemetry. - Lab Data Result diagrams: 04/24/21 20:30 04/24/21 20:30 Lab Results 04/24/21 04/24/21 04/24/21 Range/Units 20:30 20:30 20:30 WBC 16.0 H (3.8-10.6) k/uL RBC 5.85 (4.30-5.90) m/uL Hgb 17.0 (13.0-17.5) gm/dL Hct 53.7 H (39.0-53.0) % MCV 91.8 (80.0-100.0) fL MCH 29.1 (25.0-35.0) pg MCHC 31.7 (31.0-37.0) g/dL RDW 14.1 (11.5-15.5) % Plt Count 306 (150-450) k/uL MPV 8.1 Neutrophils % 67 % Lymphocytes % 23 % Monocytes % 5 % Eosinophils % 2 % Basophils % 1 % Neutrophils # 10.7 H (1.3-7.7) k/uL Lymphocytes # 3.6 (1.0-4.8) k/uL Monocytes # 0.9 (0-1.0) k/uL Eosinophils # 0.3 (0-0.7) k/uL Basophils # 0.1 (0-0.2) k/uL Hypochromasia Slight PT 11.6 (9.0-12.0) sec INR 1.1 (<1.2) APTT 21.9 L (22.0-30.0) sec Sample Site ABG pH (7.35-7.45) ABG pCO2 (35-45) mmHg ABG pO2 (83-108) mmHg ABG HCO3 (21-25) mmol/L ABG Total CO2 (19-24) mmol/L ABG O2 Saturation (94-97) % ABG Base Excess mmol/L Calderon Test FiO2 % Sodium 140 (137-145) mmol/L Potassium 4.9 (3.5-5.1) mmol/L Chloride 103 (98-107) mmol/L Carbon Dioxide 22 (22-30) mmol/L Anion Gap 15 mmol/L BUN 17 (9-20) mg/dL Creatinine 0.85 (0.66-1.25) mg/dL Est GFR (CKD-EPI)AfAm >90 (>60 ml/min/1.73 sqM) Est GFR (CKD-EPI)NonAf >90 (>60 ml/min/1.73 sqM) Glucose 293 H (74-99) mg/dL Calcium 9.6 (8.4-10.2) mg/dL Magnesium 1.6 (1.6-2.3) mg/dL Total Bilirubin 0.9 (0.2-1.3) mg/dL AST 57 (17-59) U/L ALT 41 (4-49) U/L Alkaline Phosphatase 81 (38-126) U/L Troponin I (0.000-0.034) ng/mL NT-Pro-B Natriuret Pep pg/mL Total Protein 7.7 (6.3-8.2) g/dL Albumin 4.8 (3.5-5.0) g/dL Coronavirus (PCR) (Not Detectd) 04/24/21 04/24/21 04/24/21 Range/Units 20:30 20:30 20:49 WBC (3.8-10.6) k/uL RBC (4.30-5.90) m/uL Hgb (13.0-17.5) gm/dL Hct (39.0-53.0) % MCV (80.0-100.0) fL MCH (25.0-35.0) pg MCHC (31.0-37.0) g/dL RDW (11.5-15.5) % Plt Count (150-450) k/uL MPV Neutrophils % % Lymphocytes % % Monocytes % % Eosinophils % % Basophils % % Neutrophils # (1.3-7.7) k/uL Lymphocytes # (1.0-4.8) k/uL Monocytes # (0-1.0) k/uL Eosinophils # (0-0.7) k/uL Basophils # (0-0.2) k/uL Hypochromasia PT (9.0-12.0) sec INR (<1.2) APTT (22.0-30.0) sec Sample Site Right Radial ABG pH 7.36 (7.35-7.45) ABG pCO2 42 (35-45) mmHg ABG pO2 206 H (83-108) mmHg ABG HCO3 24 (21-25) mmol/L ABG Total CO2 25 H (19-24) mmol/L ABG O2 Saturation 99.6 H (94-97) % ABG Base Excess -1.8 mmol/L Calderon Test Yes FiO2 80 % Sodium (137-145) mmol/L Potassium (3.5-5.1) mmol/L Chloride (98-107) mmol/L Carbon Dioxide (22-30) mmol/L Anion Gap mmol/L BUN (9-20) mg/dL Creatinine (0.66-1.25) mg/dL Est GFR (CKD-EPI)AfAm (>60 ml/min/1.73 sqM) Est GFR (CKD-EPI)NonAf (>60 ml/min/1.73 sqM) Glucose (74-99) mg/dL Calcium (8.4-10.2) mg/dL Magnesium (1.6-2.3) mg/dL Total Bilirubin (0.2-1.3) mg/dL AST (17-59) U/L ALT (4-49) U/L Alkaline Phosphatase (38-126) U/L Troponin I 0.022 (0.000-0.034) ng/mL NT-Pro-B Natriuret Pep 2130 pg/mL Total Protein (6.3-8.2) g/dL Albumin (3.5-5.0) g/dL Coronavirus (PCR) (Not Detectd) 04/24/21 Range/Units 21:52 WBC (3.8-10.6) k/uL RBC (4.30-5.90) m/uL Hgb (13.0-17.5) gm/dL Hct (39.0-53.0) % MCV (80.0-100.0) fL MCH (25.0-35.0) pg MCHC (31.0-37.0) g/dL RDW (11.5-15.5) % Plt Count (150-450) k/uL MPV Neutrophils % % Lymphocytes % % Monocytes % % Eosinophils % % Basophils % % Neutrophils # (1.3-7.7) k/uL Lymphocytes # (1.0-4.8) k/uL Monocytes # (0-1.0) k/uL Eosinophils # (0-0.7) k/uL Basophils # (0-0.2) k/uL Hypochromasia PT (9.0-12.0) sec INR (<1.2) APTT (22.0-30.0) sec Sample Site ABG pH (7.35-7.45) ABG pCO2 (35-45) mmHg ABG pO2 (83-108) mmHg ABG HCO3 (21-25) mmol/L ABG Total CO2 (19-24) mmol/L ABG O2 Saturation (94-97) % ABG Base Excess mmol/L Calderon Test FiO2 % Sodium (137-145) mmol/L Potassium (3.5-5.1) mmol/L Chloride (98-107) mmol/L Carbon Dioxide (22-30) mmol/L Anion Gap mmol/L BUN (9-20) mg/dL Creatinine (0.66-1.25) mg/dL Est GFR (CKD-EPI)AfAm (>60 ml/min/1.73 sqM) Est GFR (CKD-EPI)NonAf (>60 ml/min/1.73 sqM) Glucose (74-99) mg/dL Calcium (8.4-10.2) mg/dL Magnesium (1.6-2.3) mg/dL Total Bilirubin (0.2-1.3) mg/dL AST (17-59) U/L ALT (4-49) U/L Alkaline Phosphatase (38-126) U/L Troponin I (0.000-0.034) ng/mL NT-Pro-B Natriuret Pep pg/mL Total Protein (6.3-8.2) g/dL Albumin (3.5-5.0) g/dL Coronavirus (PCR) Not Detected (Not Detectd) - EKG Data -: EKG Interpreted by Me EKG Comments: 12-lead Electrocardiogram Interpretation Note EKG was reviewed and interpreted by myself. 12-lead ECG performed at 2025 is interpreted by me as revealing sinus tach cardiac at a rate of monitor 126 beats per minute. [place] is normal. NC intervals 182 ms, QRS duration is 130 ms, QTc is 431 ms.. There are no obvious ST segment changes or T-wave changes at this time to suggest acute ischemia, however due to a great deal of baseline artifact, this EKG is difficult to interpret. We will obtain repeat EKG. I compared to prior EKGs, does appear very similar without any acute changes.. R wave progression across the precordium was satisfactory. By my interpretation this EKG is non-diagnostic for acute ischemia. Repeat EKG was obtained. 12-lead Electrocardiogram Interpretation Note EKG was reviewed and interpreted by myself. 12-lead ECG performed at 2158 is interpreted by me as revealing normal sinus rhythm at a rate of 92 beats per minute. [place] is normal. NC interval is 186 ms, QRS durations 124 ms, QTc is 495 ms.. There are chronic ST segment and T-wave changes in all leads, including aVL, V4 through V6 which are seen on prior EKGs. There are no acute changes.. R wave progression across the precordium is slightly delayed.. By my interpretation this EKG is non-diagnostic for acute ischemia. It shows chronic EKG changes with mild ST segment elevations and depressions seen in all EKG leads. These are all old findings seen on prior EKGs. Critical Care Time Critical Care Time: Yes Total Critical Care Time: 30 Critical Care Time: Upon my evaluation, this patient had a high probability of imminent or life- threatening deterioration due to hypertensive emergency and flash pulmonary edema, which required my direct attention, intervention, and personal management. I have personally provided 30 minutes of critical care time exclusive of time spent on separately billable procedures. Time includes review of laboratory data, radiology results, discussion with consultants, and monitoring for potential decompensation. Interventions were performed as documented in my note. Disposition Clinical Impression: Congestive heart failure, Hypertensive emergency, Flash pulmonary edema, Acute respiratory failure with hypoxia Disposition: ADMITTED IP TO THIS HOSP Condition: Serious Referrals: Josh Dominique DO [Primary Care Provider] - 1-2 days
[2021-04-24 21:41] LABS: Potassium 4.9 mmol/L (3.5-5.1)
[2021-04-24] MEDS ORDERED: NALOXONE 0.4 MG/ML 1 ML VIAL IV PRN (23:00)
[2021-04-25] MEDS ORDERED: MORPHINE SULFATE 4 MG/ML SYRINGE IV PRN
[2021-04-25] MEDS ORDERED: ALBUTEROL NEBULIZED 2.5 MG/3 ML INHALATION PRN
[2021-04-25] MEDS ORDERED: ACETAMINOPHEN TAB 325 MG TAB PO PRN
[2021-04-25 00:05] LABS: Glucose,Whole Blood 202 mg/dL (75-99)
[2021-04-25 03:47] LABS: Basophils % (A) 0 %; Eosinophils % (A) 0 %; HCT 46.8 % (39.0-53.0); HGB 15.2 gm/dL (13.0-17.5); Lymphocytes # (A) 0.7 k/uL (1.0-4.8); Lymphocytes % (A) 9 %; MCH 29.4 pg (25.0-35.0); MCHC 32.6 g/dL (31.0-37.0); MCV 90.3 fL (80.0-100.0); Mean Platelet Volume 7.5; Monocytes # (A) 0.1 k/uL (0-1.0); Monocytes % (A) 1 %; Neutrophils # (A) 7.6 k/uL (1.3-7.7); Neutrophils % (A) 89 %; Platelet Count 185 k/uL (150-450); RBC 5.18 m/uL (4.30-5.90); RDW 13.9 % (11.5-15.5); WBC 8.5 k/uL (3.8-10.6)
[2021-04-25 04:18] LABS: ALT 41 U/L (4-49); AST 39 U/L (17-59); African American GFR (CKD) >90 (>60 ml/min/1.73 sqM); Albumin 4.4 g/dL (3.5-5.0); Alkaline Phosphatase 73 U/L (38-126); Anion Gap 10 mmol/L; Blood Urea Nitrogen 22 mg/dL (9-20); Calcium 9.7 mg/dL (8.4-10.2); Carbon Dioxide 30 mmol/L (22-30); Chloride 101 mmol/L (98-107); Glucose 182 mg/dL (74-99); Non-African American GFR(CKD) 86 (>60 ml/min/1.73 sqM); Potassium 4.7 mmol/L (3.5-5.1); Sodium 141 mmol/L (137-145); Total Bilirubin 0.6 mg/dL (0.2-1.3)
[2021-04-25] MEDS: FUROSEMIDE 10 MG/ML 4 ML VIAL IV SCH ×3 (05:00→16:44)
[2021-04-25] MEDS: HEPARIN SODIUM,PORCINE/PF 5,000 UNIT/0.5 ML SYRINGE SQ SCH ×3 (05:00→16:44)
--- NOTE | 2021-04-25 08:04 | XR ---
EXAMINATION TYPE: XR chest 1V DATE OF EXAM: 04/25/2021 HISTORY: Shortness of breath. COMPARISON: 04/24/2021 TECHNIQUE: Single view of the chest is submitted. FINDINGS: Demonstrated are scattered senescent parenchymal change. Coarse markings are noted throughout both lung sanderson although markedly improved aeration right lower lobe. Improved pulmonary venous congestion. The heart is stable. Hilar and mediastinal structures are within normal limits. Degenerative changes are seen of the dorsal spine. IMPRESSION: 1. Coarse markings are noted throughout both lung sanderson although markedly improved aeration right l ower lobe. Improved pulmonary venous congestion.
[2021-04-25] MEDS: IPRATROPIUM 0.5 MG/2.5 ML NEBU INHALATION SCH ×3 (08:16→11:38)
[2021-04-25] MEDS: carvediloL 12.5 MG TAB PO SCH ×2 (08:37→16:44)
[2021-04-25] MEDS: CLOPIDOGREL 75 MG TAB PO SCH (08:37)
[2021-04-25] MEDS: ASPIRIN 81 MG PO SCH (08:37)
[2021-04-25] MEDS: FAMOTIDINE 20 MG TAB PO SCH (08:37)
[2021-04-25] MEDS: LEVOTHYROXINE 25 MCG TAB PO SCH (08:37)
[2021-04-25] MEDS ORDERED: metFORMIN 500 MG TAB PO SCH (09:00)
[2021-04-25] MEDS: SACUBITRIL/VALSARTAN 49 MG-51 MG TABLET PO SCH ×2 (09:30→21:04)
[2021-04-25] MEDS: SPIRONOLACTONE 25 MG TAB PO SCH (09:30)
[2021-04-25] MEDS: GLIMEPIRIDE 2 MG TAB PO SCH ×2 (09:30→21:04)
[2021-04-25 09:35] LABS: Glucose,Whole Blood 187 mg/dL (75-99)
--- NOTE | 2021-04-25 09:58 | P.CRDCN ---
History of Present Illness History of present illness: HISTORY OF PRESENTING ILLNESS This is a pleasant 66-year-old male past medical history significant for coronary artery disease status post four-vessel bypass grafting in 2005, peripheral vascular disease status post bilateral iliac stenting with bilateral lower extremity revascularization, carotid endarterectomy and recent stent placement thereafter, hypertension, dyslipidemia, former nicotine dependence, COPD and type 2 diabetes mellitus. He follows in the office with Dr. Garibay We have been asked to see in consultation for congestive heart failure and hypertensive emergency. Patient presents to emergency Department complaining of acute onset of shortness of breath. Patient states he was having sudden onset and worsening shortness of breath yesterday. EMS was called and patient was found to be hypoxic SpO2 60%. He was also hypertensive BP 200s/100s. Patient was given 2 sublingual nitroglycerin, placed on CPAP and brought to the emergency department for evaluation. Patient's BP 190s-200s/100s. He was started on BiPAP. He was given IV Lasix 40mg and started on nitroglycerin drip. Patient seen and examined in the intensive care unit. He is alert and oriented x 3. He has no complaints at this time. He denies chest pain. Denies any orthopnea, PND, worsening exertional dyspnea, lower extremity edema, sleep apnea, fevers, chills, cough, palpitations, lightheadedness, or dizziness. He states he is compliant with his medication. He denies any increase in salt in his diet. He states he is compliant with his diet. He has been following with Dr. Garibay regularly. DIAGNOSTICS EKG reveals sinus mechanism, ST depression and T-wave inversions noted in the lateral leads. EKG in 07/2020 appears similar. Telemetry tracings indicate sinus mechanism Chest xray reveals coarse markings throughout both lungs, markedly improved aeration in the right lower lobe. Improved pulmonary venous congestion from chest xray on 04/24/21 Laboratory reviewed, WBC 4.5, hemoglobin 15.2, platelets 185, sodium 141, potassium 4.7, BUN 22, serum creatinine 0.9, COVID-19 PCR negative. ProBNP 0, troponin negative 1 Current home cardiac medications include enstresto 49 mg51 mg twice a day, rosuvastatin 40 mg nightly, Lasix 20 mg daily, Plavix 70 mg daily, carvedilol 3.5 g twice a day, aspirin 81 mg daily Most recent echocardiogram 07/2020 revealed EF of 30-35%, mild mitral regurgitation, mild tricuspid regurgitation, basal inferoseptal LV wall hypokinetic, mid inferioseptal wall hypokinetic, inferiorlateral hypokinesis REVIEW OF SYSTEMS At the time of my exam: CONSTITUTIONAL: Denies fever or chills. CARDIOVASCULAR: +shortness of breath, Denies chest pain, orthopnea, PND or palpitations. RESPIRATORY: Denies cough. GASTROINTESTINAL: Denies abdominal pain, diarrhea, constipation, nausea or vomiting. MUSCULOSKELETAL: Denies myalgias. NEUROLOGIC: Denies numbness, tingling or weakness. ENDOCRINE: Denies fatigue, weight change, polydipsia or polyurina. GENITOURINARY: Denies burning, hematuria or urgency with micturation. HEMATOLOGIC: Denies history of anemia or bleeding. PHYSICAL EXAMINATION Blood pressure 136/77 heart rate 80 afebrile and maintaining oxygen saturation 98% on 2L nasal cannula Patient with 1.3L urine output over the past 24 hrs. CONSTITUTIONAL: No apparent distress. HEENT: Head is normocephalic. Pupils are equal, round. Sclerae anicteric. Mucous membranes of the mouth are moist. Difficult to assess JVD on patient. CHEST EXAMINATION: Bilateral crackles in the bases. No chest wall tenderness is noted on palpation or with deep breathing. HEART EXAMINATION: Regular rate and rhythm. S1, S2 heard. Systolic murmuc noted at apex, No gallops or rub. ABDOMEN: Soft, nontender. Positive bowel sounds. EXTREMITIES: Faint peripheral pulses, no lower extremity edema, dusky discoloration bilaterally and no calf tenderness. NEUROLOGIC EXAMINATION: Patient is awake, alert and oriented x3. ASSESSMENT Hypertensive emergency Acute systolic heart failure exacerbation Coronary artery disease status post four-vessel bypass grafting in 2005 Peripheral vascular disease status post bilateral iliac stenting with bilateral lower extremity revascularization, carotid endarterectomy and recent stent placement COPD History of Hypertension Dyslipidemia Peripheral vascular disease Diabetes mellitus Type 2 PLAN Start spironolactone 25 mg daily Continue IV Lasix 40 mg Q8hr Monitor renal function and electrolytes I/Os, daily weights Continue patient's home medications Enstresto, statin, Plavix, carvedilol, and aspirin Further recommendations based on clinical course Nurse Practitioner note has been reviewed, I agree with a documented findings and plan of care. Patient was seen and examined. Past Medical History Past Medical History: Coronary Artery Disease (CAD), Chest Pain / Angina, Heart Failure, COPD, Diabetes Mellitus, Hyperlipidemia, Hypertension, Thyroid Disorder Additional Past Medical History / Comment(s): asthmatic bronchitis stage II/COPD History of Any Multi-Drug Resistant Organisms: None Reported Past Surgical History: Heart Catheterization With Stent Additional Past Surgical History / Comment(s): CARDIAC BYPASS X4, LEFT CAROTID SURGERY 2018, L/R ILIAC ARTERY STENTS 2007, L BICEPT TENDON REPAIR, L & R ROTATOR CUFF REPAIR Past Anesthesia/Blood Transfusion Reactions: No Reported Reaction Date of Last Stent Placement:: 2017 Past Psychological History: No Psychological Hx Reported Smoking Status: Former smoker Past Alcohol Use History: Occasional Past Drug Use History: None Reported - Past Family History Father Family Medical History: Coronary Artery Disease (CAD), CVA/TIA Additional Family Medical History / Comment(s): CABG Mother Family Medical History: Cancer, Coronary Artery Disease (CAD) Medications and Allergies Home Medications Medication Instructions Recorded Confirmed Type Clopidogrel [Plavix] 75 mg PO DAILY 12/13/15 04/24/21 History Levothyroxine Sodium [Synthroid] 25 mcg PO DAILY 12/13/15 04/24/21 History metFORMIN HCL [Glucophage] 1,000 mg PO BID 12/13/15 04/24/21 History Albuterol Sulfate [Proair Hfa] 2 puff INHALATION RT-QID PRN 07/02/18 04/24/21 History Glimepiride [Amaryl] 2 mg PO BID 07/02/18 04/24/21 History Aspirin EC [Ecotrin Low Dose] 81 mg PO DAILY 08/02/20 04/24/21 History Carvedilol [Coreg] 12.5 mg PO BID 08/02/20 04/24/21 History Famotidine [Pepcid] 20 mg PO DAILY 08/02/20 04/24/21 History Fluticasone Propion/Salmeterol 1 puff INHALATION RT-BID 08/02/20 04/24/21 History [Fluticasone-Salmeterol 500-50] Multivit-Min/FA/Lycopen/Lutein 1 tab PO DAILY 08/02/20 04/24/21 History [Centrum Silver Tablet] Zinc 50 mg PO DAILY 08/02/20 04/24/21 History Albuterol Nebulized [Ventolin 2.5 mg INHALATION Q6H PRN 04/24/21 04/24/21 History Nebulized] EPINEPHrine (Auto Inject) [Epipen] 0.3 mg IM ONCE PRN 04/24/21 04/24/21 History Furosemide [Lasix] 20 mg PO DAILY 04/24/21 04/24/21 History Rosuvastatin Calcium [Crestor] 40 mg PO HS 04/24/21 04/24/21 History Sacubitril/Valsartan [Entresto 49 1 tab PO BID 04/24/21 04/24/21 History mg-51 mg Tablet] Sildenafil Citrate [Viagra] 100 mg PO DAILY PRN 04/24/21 04/24/21 History Testosterone Cypionate 200 mg IM DIRECTED 04/24/21 04/24/21 History [Depo-Testosterone] Tiotropium 2.5 Mcg/Puff [Spiriva 2 puff INHALATION RT-DAILY 04/24/21 04/24/21 History Respimat 2.5 Mcg] Allergies Allergy/AdvReac Type Severity Reaction Status Date / Time bee venom protein (honey bee) Allergy Anaphylaxis Verified 04/24/21 21:26 Iodinated Contrast Media Allergy Rash/Hives Verified 04/24/21 21:26 iodine Allergy Rash/Hives Verified 04/24/21 21:26 Mushroom Allergy Unknown Verified 04/24/21 21:26 prednisone Allergy Unknown Verified 04/24/21 21:26 Physical Exam Vitals: Vital Signs Temp Pulse Pulse Resp BP Pulse Ox 04/25/21 06:00 77 16 149/70 96 04/25/21 05:00 86 13 142/72 97 04/25/21 04:00 97.2 F L 79 12 151/71 96 04/25/21 03:00 79 13 159/77 94 L 04/25/21 02:00 78 15 151/71 95 04/25/21 01:00 75 13 143/67 98 04/25/21 00:05 97.1 F L 74 16 136/79 98 04/24/21 23:35 98.0 F 98 18 154/88 95 04/24/21 22:02 92 18 118/60 93 L 04/24/21 21:16 107 H 24 139/69 93 L 04/24/21 20:53 113 H 20 177/93 96 04/24/21 20:30 120 H 27 H 08/31/21 20:28 125 H 25 H 203/116 95 04/24/21 20:21 98.2 F 126 H 20 193/112 90 L Intake and Output 04/24/21 04/25/21 04/25/21 22:59 06:59 14:59 Intake Total 6.15 Output Total 1000 300 Balance -993.85 -300 Intake: Intake, IV Titration 6.15 Amount Nitroglycerin-D5w Pmx 50 6.15 mg In Dextrose/Water 1 250ml.bag @ 50 MCG/MIN 15 mls/hr IV .[id number] ONE Rx#:[id number] Output: Urine 1000 300 Other: Weight 125.418 kg 115.5 kg Results 04/25/21 03:16 04/25/21 03:16 Cardiac Enzymes 04/24/21 04/24/21 04/25/21 Range/Units 20:30 20:30 03:16 AST 57 39 (17-59) U/L Troponin I 0.022 (0.000-0.034) ng/mL Coagulation 04/24/21 Range/Units 20:30 PT 11.6 (9.0-12.0) sec APTT 21.9 L (22.0-30.0) sec CBC 04/24/21 04/25/21 Range/Units 20:30 03:16 WBC 16.0 H 8.5 (3.8-10.6) k/uL RBC 5.85 5.18 (4.30-5.90) m/uL Hgb 17.0 15.2 (13.0-17.5) gm/dL Hct 53.7 H 46.8 (39.0-53.0) % Plt Count 306 185 (150-450) k/uL Comprehensive Metabolic Panel 04/24/21 04/25/21 Range/Units 20:30 03:16 Sodium 140 141 (137-145) mmol/L Potassium 4.9 4.7 (3.5-5.1) mmol/L Chloride 103 101 (98-107) mmol/L Carbon Dioxide 22 30 (22-30) mmol/L BUN 17 22 H (9-20) mg/dL Creatinine 0.85 0.94 (0.66-1.25) mg/dL Glucose 293 H 182 H (74-99) mg/dL Calcium 9.6 9.7 (8.4-10.2) mg/dL AST 57 39 (17-59) U/L ALT 41 41 (4-49) U/L Alkaline Phosphatase 81 73 (38-126) U/L Total Protein 7.7 7.0 (6.3-8.2) g/dL Albumin 4.8 4.4 (3.5-5.0) g/dL Current Medications Generic Name Dose Route Start Last Admin Trade Name Freq PRN Reason Stop Dose Admin Acetaminophen 650 mg 04/25/21 00:00 Acetaminophen Tab 325 Mg Tab PO Q4HR PRN Fever and/or Mild Pain Albuterol Sulfate 2.5 mg 04/25/21 00:00 Albuterol Nebulized 2.5 Mg/3 Ml INHALATION Q6H PRN Shortness Of Breath Aspirin 81 mg 04/25/21 09:00 Aspirin 81 Mg PO DAILY PATRICK Atorvastatin Calcium 80 mg 04/25/21 21:00 Atorvastatin 80 Mg Tab PO HS [facility] Budesonide/Formoterol Fumarate 2 puff 04/25/21 08:00 Symbicort 160-4.5 Mcg Inhaler INHALATION RT-BID [facility] Carvedilol 12.5 mg 04/25/21 07:30 Carvedilol 12.5 Mg Tab PO BID-W/MEALS [facility] Clopidogrel Bisulfate 75 mg 04/25/21 09:00 Clopidogrel 75 Mg Tab PO DAILY PATRICK Famotidine 20 mg 04/25/21 09:00 Famotidine 20 Mg Tab PO DAILY [facility] Furosemide 40 mg 04/25/21 00:00 04/25/21 05:00 Furosemide 10 Mg/Ml 4 Ml Vial IV 40 mg Q8HR PATRICK Administration Glimepiride 2 mg 04/25/21 09:00 Glimepiride 2 Mg Tab PO BID [facility] Heparin Sodium (Porcine) 5,000 unit 04/25/21 00:00 04/25/21 05:00 Heparin Sodium,Porcine/Pf 5,000 Unit/0.5 Ml Syringe SQ 5,000 unit Q8HR PATRICK Administration Nitroglycerin/Dextrose 50 mg/ 250 mls @ 15 mls/hr 04/24/21 20:28 04/24/21 21:53 IV Solution IV 04/25/21 13:07 0 mcg/min .[id number] ONE 0 mls/hr Titration Protocol 50 MCG/MIN Insulin Aspart 0 unit 09/01/21 07:30 Insulin Aspart (Novolog) 100 Unit/Ml Vial SQ ACHS [facility] Protocol Ipratropium [place] 0.5 mg 04/25/21 08:00 Ipratropium 0.5 Mg/2.5 Ml Nebu INHALATION RT-QID [facility] Levothyroxine Sodium 25 mcg 04/25/21 06:30 Levothyroxine 25 Mcg Tab PO DAILY@0630 [facility] Metformin HCl 1,000 mg 04/25/21 09:00 Metformin 500 Mg Tab PO BID [facility] Morphine Sulfate 4 mg 04/25/21 00:00 Morphine Sulfate 4 Mg/Ml Syringe IV Q2HR PRN Pain Scale 8 to 10 Naloxone HCl 0.2 mg 04/24/21 23:00 Naloxone 0.4 Mg/Ml 1 Ml Vial IV Q2M PRN Opioid Reversal Sacubitril/Valsartan 1 each 04/25/21 09:00 Sacubitril/Valsartan 49 Mg-51 Mg Tablet PO BID [facility] Intake and Output 04/24/21 04/25/21 04/25/21 22:59 06:59 14:59 Intake Total 6.15 Output Total 1000 300 Balance -993.85 -300 Intake: Intake, IV Titration 6.15 Amount Nitroglycerin-D5w Pmx 50 6.15 mg In Dextrose/Water 1 250ml.bag @ 50 MCG/MIN 15 mls/hr IV .[id number] ONE Rx#:[id number] Output: Urine 1000 300 Other: Weight 125.418 kg 115.5 kg 04/25/21 03:16 04/25/21 03:16
[2021-04-25] MEDS: INSULIN ASPART (NovoLOG) 100 UNIT/ML VIAL SQ SCH ×4 (10:30→21:04)
[2021-04-25 11:29] LABS: Glucose,Whole Blood 238 mg/dL (75-99)
[2021-04-25] MEDS ORDERED: IPRATROPIUM-ALBUTEROL 3 ML NEB INHALATION PRN (11:51)
--- NOTE | 2021-04-25 11:53 | P.CNPUL ---
History of Present Illness Consult date: 04/25/21 Requesting physician: Aiyana Castro Reason for consult: dyspnea, COPD, hypoxemia, abnormal CXR/CT Chief complaint: Shortness of breath. History of present illness: Pulmonary consult dated 04/25/2021. 66-year-old male, with a past medical history of heart failure, hypertension, hyperlipidemia, COPD, coronary artery disease, among other things, who apparently was playing golf yesterday and shortly thereafter developed sudden shortness of breath. The patient decided to come to the hospital to be evaluated. In the emergency room, he was found to have congestive heart failure, and was placed on BiPAP. He received IV nitroglycerin, IV Lasix, and was placed on oxygen therapy, and then BiPAP. He turned around rather nicely, and when I spoke to the emergency room physician, we decided to admit him to the intensive care unit anyway just for observation. He did have some blood pressure elevations, which were treated as well. He denied any chest pain or chest discomfort. The patient has been vaccinated for coronavirus. I see him in the office for COPD. Currently, the patient's doing well. He is resting comfortably in the intensive care unit. He was admitted on April 24. On BiPAP , settings were 12/6 and 50%. Subsequent to that, he was dropped on the 35%. Currently, he's on 2 L nasal cannula. Is not receiving any IV fluids. Initially, blood gas showed a pO2 of 206, pCO2 42, and a pH is 7.36. This was on 80% oxygen. The patient will be seen by cardiology. White count 8.5, hemogram 15.2, hematocrit 46.8, platelet count 185,000. Sodium potassium chloride CO2 all normal. Anion gap is normal. BUN and creatinine were 22 and 0.94. Troponins are 0.022 and N-terminal proBNP was 2130. Initial chest x-ray was consistent with fluid overload, and subsequent chest x-ray today, showed an improved volume status. Review of Systems REVIEW OF SYSTEMS: CONSTITUTIONAL: [Negative.] NEUROLOGIC: [ Negative.] HEENT: [ Negative.] CARDIAC: [Negative.] PULMONARY: Shortness of breath. GI: [Negative.] : [Negative.] RHEUMATOLOGIC: [ Negative.] IMMUNOLOGIC: [ Negative.] ENDOCRINE: [Negative. ] DERMATOLOGIC: [Negative.] Past Medical History Past Medical History: Coronary Artery Disease (CAD), Chest Pain / Angina, Heart Failure, COPD, Diabetes Mellitus, Hyperlipidemia, Hypertension, Thyroid Disorder Additional Past Medical History / Comment(s): asthmatic bronchitis stage II/COPD History of Any Multi-Drug Resistant Organisms: None Reported Past Surgical History: Heart Catheterization With Stent Additional Past Surgical History / Comment(s): CARDIAC BYPASS X4, LEFT CAROTID SURGERY 2018, L/R ILIAC ARTERY STENTS 2007, L BICEPT TENDON REPAIR, L & R ROTATOR CUFF REPAIR Past Anesthesia/Blood Transfusion Reactions: No Reported Reaction Date of Last Stent Placement:: 2017 Past Psychological History: No Psychological Hx Reported Smoking Status: Former smoker Past Alcohol Use History: Occasional Past Drug Use History: None Reported - Past Family History Father Family Medical History: Coronary Artery Disease (CAD), CVA/TIA Additional Family Medical History / Comment(s): CABG Mother Family Medical History: Cancer, Coronary Artery Disease (CAD) Medications and Allergies Home Medications Medication Instructions Recorded Confirmed Type Clopidogrel [Plavix] 75 mg PO DAILY 12/13/15 04/24/21 History Levothyroxine Sodium [Synthroid] 25 mcg PO DAILY 12/13/15 04/24/21 History metFORMIN HCL [Glucophage] 1,000 mg PO BID 12/13/15 04/24/21 History Albuterol Sulfate [Proair Hfa] 2 puff INHALATION RT-QID PRN 07/02/18 04/24/21 History Glimepiride [Amaryl] 2 mg PO BID 07/02/18 04/24/21 History Aspirin EC [Ecotrin Low Dose] 81 mg PO DAILY 08/02/20 04/24/21 History Carvedilol [Coreg] 12.5 mg PO BID 08/02/20 04/24/21 History Famotidine [Pepcid] 20 mg PO DAILY 08/02/20 04/24/21 History Fluticasone Propion/Salmeterol 1 puff INHALATION RT-BID 08/02/20 04/24/21 History [Fluticasone-Salmeterol 500-50] Multivit-Min/FA/Lycopen/Lutein 1 tab PO DAILY 08/02/20 04/24/21 History [Centrum Silver Tablet] Zinc 50 mg PO DAILY 08/02/20 04/24/21 History Albuterol Nebulized [Ventolin 2.5 mg INHALATION Q6H PRN 04/24/21 04/24/21 History Nebulized] EPINEPHrine (Auto Inject) [Epipen] 0.3 mg IM ONCE PRN 04/24/21 04/24/21 History Furosemide [Lasix] 20 mg PO DAILY 04/24/21 04/24/21 History Rosuvastatin Calcium [Crestor] 40 mg PO HS 04/24/21 04/24/21 History Sacubitril/Valsartan [Entresto 49 1 tab PO BID 04/24/21 04/24/21 History mg-51 mg Tablet] Sildenafil Citrate [Viagra] 100 mg PO DAILY PRN 04/24/21 04/24/21 History Testosterone Cypionate 200 mg IM DIRECTED 04/24/21 04/24/21 History [Depo-Testosterone] Tiotropium 2.5 Mcg/Puff [Spiriva 2 puff INHALATION RT-DAILY 04/24/21 04/24/21 History Respimat 2.5 Mcg] Allergies Allergy/AdvReac Type Severity Reaction Status Date / Time bee venom protein (honey bee) Allergy Anaphylaxis Verified 04/24/21 21:26 Iodinated Contrast Media Allergy Rash/Hives Verified 04/24/21 21:26 iodine Allergy Rash/Hives Verified 04/24/21 21:26 Mushroom Allergy Unknown Verified 04/24/21 21:26 prednisone Allergy Unknown Verified 04/24/21 21:26 Physical Exam Osteopathic Statement: *. No significant issues noted on an osteopathic structural exam other than those noted in the History and Physical/Consult. Vitals: Vital Signs Temp Pulse Pulse Resp BP Pulse Ox 04/25/21 09:17 77 04/25/21 09:04 73 98 04/25/21 09:00 80 25 H 136/77 91 L 04/25/21 08:00 84 29 H 137/63 95 04/25/21 07:00 88 18 170/93 96 04/25/21 06:00 77 16 149/70 96 04/25/21 05:00 86 13 142/72 97 04/25/21 04:00 97.2 F L 79 12 151/71 96 04/25/21 03:00 79 13 159/77 94 L 04/25/21 02:00 78 15 151/71 95 04/25/21 01:00 75 13 143/67 98 04/25/21 00:05 97.1 F L 74 16 136/79 98 04/24/21 23:35 98.0 F 98 18 154/88 95 04/24/21 22:02 92 18 118/60 93 L 04/24/21 21:16 107 H 24 139/69 93 L 04/24/21 20:53 113 H 20 177/93 96 04/24/21 20:30 120 H 27 H 04/24/21 20:28 125 H 25 H 203/116 95 04/24/21 20:21 98.2 F 126 H 20 193/112 90 L Intake and Output 04/24/21 04/25/21 04/25/21 22:59 06:59 14:59 Intake Total 6.15 Output Total 1000 300 200 Balance -993.85 -300 -200 Intake: Intake, IV Titration 6.15 Amount Nitroglycerin-D5w Pmx 50 6.15 mg In Dextrose/Water 1 250ml.bag @ 50 MCG/MIN 15 mls/hr IV .[id number] ONE Rx#:[id number] Output: Urine 1000 300 200 Other: Voiding Method Bedside Commode Urinal Weight 125.418 kg 115.5 kg No acute distress, oriented 3. Feeling much better, currently on 2 L nasal cannula. HEENT examination is grossly unremarkable. Neck supple. Full range of motion. No adenopathy thyromegaly or neck vein distention. Cardiovascular examination reveals regular rhythm rate. S1-S2 normal. No S3 or S4. No discernible murmur noted. Heart rate 78 bpm. Lungs reveal scattered rhonchi. Basilar crackles are appreciated. No wheezes. 2 L saturations 98%. Breath sounds are equal bilaterally. Abdomen soft bowel sounds are heard. No masses or tenderness. Extremities are intact. No cyanosis clubbing or edema. Skin is without rash or lesion. Neurologic examination is brief but nonfocal. Results - Laboratory Findings CBC and BMP: 04/25/21 03:16 04/25/21 03:16 ABG ABG pH 7.36 (7.35-7.45) 04/24/21 20:49 ABG pCO2 42 mmHg (35-45) 04/24/21 20:49 ABG pO2 206 mmHg (83-108) H 04/24/21 20:49 ABG O2 Saturation 99.6 % (94-97) H 04/24/21 20:49 PT/INR, D-dimer PT 11.6 sec (9.0-12.0) 04/24/21 20:30 INR 1.1 (<1.2) 04/24/21 20:30 Abnormal lab findings: Abnormal Labs 04/24/21 04/24/21 04/24/21 20:30 20:30 20:30 WBC 16.0 H Hct 53.7 H Neutrophils # 10.7 H Lymphocytes # APTT 21.9 L ABG pO2 ABG Total CO2 ABG O2 Saturation BUN Glucose 293 H POC Glucose (mg/dL) 04/24/21 04/25/21 04/25/21 20:49 00:03 03:16 WBC Hct Neutrophils # Lymphocytes # 0.7 L APTT ABG pO2 206 H ABG Total CO2 25 H ABG O2 Saturation 99.6 H BUN Glucose POC Glucose (mg/dL) 202 H 04/25/21 04/25/21 04/25/21 03:16 09:34 11:28 WBC Hct Neutrophils # Lymphocytes # APTT ABG pO2 ABG Total CO2 ABG O2 Saturation BUN 22 H Glucose 182 H POC Glucose (mg/dL) 187 H 238 H - Diagnostic Findings Chest x-ray: image reviewed Assessment and Plan Assessment: Acute hypoxemic respiratory failure, secondary to acute pulmonary edema/CHF, much improved on BiPAP, IV nitroglycerin, and IV Lasix. History of COPD, secondary to previous tobacco use. History of CAD, status post catheterization with stent placement. Status post bypass grafting 4 vessel. History of angina pectoris. History of diabetes mellitus. History of hyperlipidemia. History of hypertension. History of hypothyroidism. Plan: Plan dated 04/25/2021. Currently, the patient's doing well. He's feeling much better. He did receive BiPAP therapy, IV nitroglycerin, and IV Lasix. He's on 2 L. Blood gases were reviewed. Labs and x-rays are reviewed. His chest x-ray is much improved. We will continue to follow make recommendations where appropriate. His pulmonary medications include Symbicort, and DuoNeb. His other medications are appropriate. Time with Patient: Greater than 30
[2021-04-25] MEDS: SYMBICORT 160-4.5 MCG INHALER INHALATION SCH ×2 (11:56→20:01)
[2021-04-25] MEDS: IPRATROPIUM-ALBUTEROL 3 ML NEB INHALATION SCH ×3 (12:18→20:01)
[2021-04-25 16:13] LABS: Glucose,Whole Blood 128 mg/dL (75-99)
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
[2021-04-25] MEDS ORDERED: ATORVASTATIN 80 MG TAB PO SCH (21:00)
[2021-04-25] MEDS ORDERED: FAMOTIDINE 20 MG TAB PO SCH (21:00)
[2021-04-25 21:04] LABS: Glucose,Whole Blood 126 mg/dL (75-99)
[2021-04-26] MEDS: HEPARIN SODIUM,PORCINE/PF 5,000 UNIT/0.5 ML SYRINGE SQ SCH ×2 (00:55→09:09)
[2021-04-26] MEDS: FUROSEMIDE 10 MG/ML 4 ML VIAL IV SCH (00:55)
[2021-04-26 04:43] LABS: African American GFR (CKD) >90 (>60 ml/min/1.73 sqM); Anion Gap 9 mmol/L; Blood Urea Nitrogen 27 mg/dL (9-20); Calcium 9.6 mg/dL (8.4-10.2); Carbon Dioxide 32 mmol/L (22-30); Chloride 96 mmol/L (98-107); Glucose 119 mg/dL (74-99); Magnesium 1.6 mg/dL (1.6-2.3); Non-African American GFR(CKD) >90 (>60 ml/min/1.73 sqM); Potassium 3.6 mmol/L (3.5-5.1); Sodium 137 mmol/L (137-145)
[2021-04-26] MEDS ORDERED: POTASSIUM CHLORIDE ER 20 MEQ TAB.ER PO SCH (06:00)
[2021-04-26] MEDS: LEVOTHYROXINE 25 MCG TAB PO SCH (06:31)
[2021-04-26] MEDS: carvediloL 12.5 MG TAB PO SCH (06:31)
[2021-04-26] MEDS: INSULIN ASPART (NovoLOG) 100 UNIT/ML VIAL SQ SCH (06:32)
[2021-04-26] MEDS: SYMBICORT 160-4.5 MCG INHALER INHALATION SCH (07:35)
[2021-04-26] MEDS: IPRATROPIUM-ALBUTEROL 3 ML NEB INHALATION SCH ×2 (07:35→11:13)
--- NOTE | 2021-04-26 08:19 | P.PN ---
Subjective Progress Note Date: 04/26/21 Principal diagnosis: Hypertension emergency This is a very pleasant 66-year-old gentleman with coronary artery disease and status post coronary artery bypass grafting in 2006 as well as ischemic cardiomyopathy as well as chronic systolic heart failure and multiple comorbid conditions was admitted to the hospital with hypertension emergency complicated by heart failure. The patient was seen this morning. He is feeling better. On examination he is euvolemic as well as. From a cardiac vascular standpoint of view, the patient can be discharged home. I'm going to stop the Lasix IV and start the patient on Lasix. Yesterday also we started the patient on Aldactone. The pressure seems to be better controlled at this point. Objective - Vital Signs Vital signs: Vital Signs Temp 97.7 F 04/26/21 04:00 Pulse 73 04/26/21 07:46 Resp 19 04/26/21 04:00 BP 132/59 04/26/21 04:00 Pulse Ox 94 L 04/26/21 06:00 Intake & Output 04/25/21 04/26/21 04/26/21 18:59 06:59 18:59 Intake Total 600 Output Total 200 1800 Balance -200 -1200 Weight 112.3 kg Intake: Oral 600 Output: Urine 200 1800 Other: Voiding Method Bedside Commode Bedside Commode Urinal Urinal - Constitutional General appearance: Present: no acute distress - Respiratory Respiratory: bilateral: CTA - Cardiovascular Rhythm: regular Heart sounds: normal: S1, S2 - Labs CBC & Chem 7: 04/25/21 03:16 04/26/21 03:42 Labs: Abnormal Lab Results - Last 24 Hours (Table) 04/25/21 04/25/21 04/25/21 Range/Units 03:06 09:34 11:28 Chloride (98-107) mmol/L Carbon Dioxide (22-30) mmol/L BUN (9-20) mg/dL Glucose (74-99) mg/dL POC Glucose (mg/dL) 187 H 238 H (75-99) mg/dL Procalcitonin 0.25 H (0.02-0.09) ng/mL 04/25/21 04/25/21 04/26/21 Range/Units 16:12 21:03 03:42 Chloride 96 L (98-107) mmol/L Carbon Dioxide 32 H (22-30) mmol/L BUN 27 H (9-20) mg/dL Glucose 119 H (74-99) mg/dL POC Glucose (mg/dL) 128 H 126 H (75-99) mg/dL Procalcitonin (0.02-0.09) ng/mL Assessment and Plan Assessment: Assessment #1 hypertension emergency #2 acute exacerbation of systolic heart failure #3 coronary artery disease and status post revascularization #4 multiple comorbid conditions Plan #1 the patient is euvolemic #2 he is stable clinically #3 he can be discharged home #4 DC Lasix IV and start the patient on Lasix by mouth
[2021-04-26] MEDS ORDERED: FUROSEMIDE 40 MG TAB PO SCH (09:00)
[2021-04-26] MEDS: SPIRONOLACTONE 25 MG TAB PO SCH (09:10)
[2021-04-26] MEDS: FAMOTIDINE 20 MG TAB PO SCH (09:10)
[2021-04-26] MEDS: CLOPIDOGREL 75 MG TAB PO SCH (09:10)
[2021-04-26] MEDS: ASPIRIN 81 MG PO SCH (09:10)
[2021-04-26] MEDS: SACUBITRIL/VALSARTAN 49 MG-51 MG TABLET PO SCH (09:10)
[2021-04-26] MEDS: GLIMEPIRIDE 2 MG TAB PO SCH (09:10)
--- NOTE | 2021-04-26 10:37 | P.PN ---
Subjective Progress Note Date: 04/26/21 Principal diagnosis: Congestive heart failure. Pulmonary consult dated 04/25/2021. 66-year-old male, with a past medical history of heart failure, hypertension, hyperlipidemia, COPD, coronary artery disease, among other things, who apparently was playing golf yesterday and shortly thereafter developed sudden shortness of breath. The patient decided to come to the hospital to be evaluated. In the emergency room, he was found to have congestive heart failure, and was placed on BiPAP. He received IV nitroglycerin, IV Lasix, and was placed on oxygen therapy, and then BiPAP. He turned around rather nicely, and when I spoke to the emergency room physician, we decided to admit him to the intensive care unit anyway just for observation. He did have some blood pressure elevations, which were treated as well. He denied any chest pain or chest discomfort. The patient has been vaccinated for coronavirus. I see him in the office for COPD. Currently, the patient's doing well. He is resting comfortably in the intensive care unit. He was admitted on April 24. On BiPA P, settings were 12/6 and 50%. Subsequent to that, he was dropped on the 35%. Currently, he's on 2 L nasal cannula. Is not receiving any IV fluids. Initially, blood gas showed a pO2 of 206, pCO2 42, and a pH is 7.36. This was on 80% oxygen. The patient will be seen by cardiology. White count 8.5, hemogram 15.2, hematocrit 46.8, platelet count 185,000. Sodium potassium chloride CO2 all normal. Anion gap is normal. BUN and creatinine were 22 and 0.94. Troponins are 0.022 and N-terminal proBNP was 2130. Initial chest x-ray was consistent with fluid overload, and subsequent chest x-ray today, showed an improved volume status. Progress note dated 04/26/2021. 66-year-old male, with a history of congestive heart failure, essential hypertension, hyperlipidemia, COPD, coronary disease, who presented to the emergency department with acute pulmonary edema. He was treated with BiPAP t herapy, IV Lasix, and IV nitroglycerin. Currently, the patient's doing well. He is on room air. Isn't receiving any IV fluids. He tells me this morning, the cardiology told him, that he could be discharged home. He follows with an outside aircraft refueler. He denies any chest pain, chest pressure, palpitations, fluttering, shortness of breath, wheezing, cough, or phlegm production. Labs today include a sodium 137, potassium 3.6, chlorides 96, CO2 32, anion gap 9, BUN 27, and creatinine 0.85. No chest x-ray today. Yesterday's chest x-ray showed significant improvement in the patient's overall volume status. Objective - Vital Signs Vital signs: Vital Signs Temp 97.7 F 04/26/21 04:00 Pulse 73 04/26/21 07:46 Resp 19 04/26/21 04:00 BP 132/59 04/26/21 04:00 Pulse Ox 94 L 04/26/21 06:00 Intake & Output 04/25/21 04/26/21 04/26/21 18:59 06:59 18:59 Intake Total 600 Output Total 200 1800 Balance -200 -1200 Weight 112.3 kg Intake: Oral 600 Output: Urine 200 1800 Other: Voiding Method Bedside Commode Bedside Commode Urinal Urinal - Exam No acute distress, oriented 3. Feeling much better, currently on room air. HEENT examination is grossly unremarkable. Neck supple. Full range of motion. No adenopathy thyromegaly or neck vein distention. Cardiovascular examination reveals regular rhythm rate. S1-S2 normal. No S3 or S4. No discernible murmur noted. Heart rate 73 bpm. Lungs reveal scattered rhonchi. Basilar crackles are appreciated. No wheezes. Breath sounds are equal bilaterally. Abdomen soft bowel sounds are heard. No masses or tenderness. Extremities are intact. No cyanosis clubbing or edema. Skin is without rash or lesion. Neurologic examination is brief but nonfocal. - Labs CBC & Chem 7: 04/25/21 03:16 04/26/21 03:42 Labs: Abnormal Lab Results - Last 24 Hours (Table) 04/25/21 04/25/21 04/25/21 Range/Units 03:06 11:28 16:12 Chloride (98-107) mmol/L Carbon Dioxide (22-30) mmol/L BUN (9-20) mg/dL Glucose (74-99) mg/dL POC Glucose (mg/dL) 238 H 128 H (75-99) mg/dL Procalcitonin 0.25 H (0.02-0.09) ng/mL 04/25/21 04/26/21 Range/Units 21:03 03:42 Chloride 96 L (98-107) mmol/L Carbon Dioxide 32 H (22-30) mmol/L BUN 27 H (9-20) mg/dL Glucose 119 H (74-99) mg/dL POC Glucose (mg/dL) 126 H (75-99) mg/dL Procalcitonin (0.02-0.09) ng/mL Assessment and Plan Assessment: Acute hypoxemic respiratory failure, secondary to acute pulmonary edema/CHF, much improved on BiPAP, IV nitroglycerin, and IV Lasix. History of COPD, secondary to previous tobacco use. History of CAD, status post catheterization with stent placement. Status post bypass grafting 4 vessel. History of angina pectoris. History of diabetes mellitus. History of hyperlipidemia. History of hypertension. History of hypothyroidism. Plan: Plan dated 04/25/2021. Currently, the patient's doing well. He's feeling much better. He did receive BiPAP therapy, IV nitroglycerin, and IV Lasix. He's on 2 L. Blood gases were reviewed. Labs and x-rays are reviewed. His chest x-ray is much improved. We will continue to follow make recommendations where appropriate. His pulmonary medications include Symbicort, and DuoNeb. His other medications are appropriate. Plan dated 04/26/2021. Currently, the patient's doing much better. Apparently cardiology told the patient he could be discharged home today. The patient does have an outside aircraft refueler. The patient will make an appointment to see his aircraft refueler once discharged. From the pulmonary standpoint, the patient will follow with me in the office. Currently, his COPD is not particularly active. Additional recommendations and suggestions are forthcoming. We will continue to follow make recommendations where appropriate, should he not be discharged. Time with Patient: Less than 30
[2021-04-26 13:47] VITALS: BP 130/67; RESP 16; TEMP 98.6
[2021-04-26 13:51] VITALS: PULSE 67
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
== END 2021-04-26 13:05 | disposition home or self-care (01) | DRG 291 ==
LOC: EC 20:19 → 2SICU 23:05
PROVIDERS: ADMIT Hospitalist; ATTEND Hospitalist
PROC: 5A09357 Assistance with Respiratory Ventilation, Less than 24 Consecutive Hours, Continuous Positive Airway Pressure (ICD-10-PCS; principal; 2021-04-24)
DX: I11.0 Hypertensive heart disease with heart failure (principal); J96.01 Acute respiratory failure with hypoxia; I16.1 Hypertensive emergency; I50.23 Acute on chronic systolic (congestive) heart failure; I25.10 Atherosclerotic heart disease of native coronary artery without angina pectoris; E78.5 Hyperlipidemia, unspecified; Z79.02 Long term (current) use of antithrombotics/antiplatelets; Z79.890 Hormone replacement therapy; Z79.82 Long term (current) use of aspirin; J44.9 Chronic obstructive pulmonary disease, unspecified; Z95.1 Presence of aortocoronary bypass graft; Z95.5 Presence of coronary angioplasty implant and graft; I95.9 Hypotension, unspecified; Z20.822 Contact with and (suspected) exposure to COVID-19; D72.829 Elevated white blood cell count, unspecified; E11.51 Type 2 diabetes mellitus with diabetic peripheral angiopathy without gangrene; Z79.84 Long term (current) use of oral hypoglycemic drugs; E03.9 Hypothyroidism, unspecified; I25.5 Ischemic cardiomyopathy; Z79.899 Other long term (current) drug therapy; Z82.49 Family history of ischemic heart disease and other diseases of the circulatory system; Z87.891 Personal history of nicotine dependence; Z91.041 Radiographic dye allergy status; Z91.030 Bee allergy status; Z88.8 Allergy status to other drugs, medicaments and biological substances; Z91.018 Allergy to other foods
CPT/HCPCS: 36415; 36600; 71045; 80048; 80053; 82805; 83735; 83880; 84145; 84484; 85025; 85610; 85730; 87635; 93005; 94640; 94660; 94760; 96365; 96375; 99291

== ENCOUNTER → 2021-07-02 | Outpatient (CLI) | payer BC, OTHER ==
--- NOTE | 2021-07-02 09:51 | XR ---
EXAMINATION TYPE: XR foot complete RT DATE OF EXAM: 07/02/2021 COMPARISON: NONE HISTORY: Pain TECHNIQUE: Three views are submitted. FINDINGS: The osseous structures are intact. There is no acute fracture or dislocation. Severe arthropathy f irst MTP. Bone island overlying the cuboid bone. Soft tissue prominence overlying the fifth MTP joint nonspecific. Vascular calcification seen.. IMPRESSION: 1. No acute fracture or dislocation. If symptoms persist, follow-up exam in 7 to 10 days could be ob tained. 2. There is soft tissue fullness adjacent to the fifth MTP joint correlate clinically 3. Severe arthropathy first MTP joint
== END | disposition home or self-care (01) ==
LOC: RADXRYALE 09:24
PROVIDERS: ATTEND Physician Assistant Medical
DX: M19.071 Primary osteoarthritis, right ankle and foot (principal)

== ENCOUNTER → 2021-10-22 | Outpatient (CLI) | payer BC, OTHER ==
--- NOTE | 2021-10-22 15:05 | XR ---
EXAMINATION TYPE: XR Hip Complete RT DATE OF EXAM: 10/22/2021 COMPARISON: None HISTORY: Right hip pain TECHNIQUE: 2 view right hand FINDINGS: Femoral head articulates with the acetabulum. Mild diffuse joint space narrowing may be pre sent. Mild acetabular spurring is present. No acute fracture or dislocation is evident. IMPRESSION: 1. No acute osseous abnormality.
== END | disposition home or self-care (01) ==
LOC: RADXRYALE 11:10
PROVIDERS: ATTEND Physician Assistant
DX: M25.551 Pain in right hip (principal)
CPT/HCPCS: 73502

== ENCOUNTER → 2022-04-30 | Outpatient (CLI) | payer MEDICARE, BC ==
--- NOTE | 2022-04-30 10:47 | XR ---
EXAMINATION TYPE: XR ribs LT w pa chest xray DATE OF EXAM: 04/30/2022 CLINICAL HISTORY: Chest pain and lateral rib pain. TECHNIQUE: Single frontal view of the chest is obtained. A frontal and lateral views of the left little e of the ribs. COMPARISON: CXR from 04/25/2021. FINDINGS: Overlying sternal wires and mediastinal clips are redemonstrated. There is mild chronic p arenchymal change without suspicious focal air space opacity, pleural effusion, or pneumothorax seen bilaterally. The cardiac silhouette size is within normal limits. The osseous structures are intac t. Dedicated images of the left-sided ribs show no acute displaced fractures. No suspicious focal lytic or expansile left rib lesion. Overlying soft tissue is unremarkable. IMPRESSION: 1. Chronic changes without acute cardiopulmonary process. 2. No acute displaced left-sided rib fracture.
== END | disposition home or self-care (01) ==
LOC: RADXRYALE 10:25
PROVIDERS: ATTEND Physician Assistant Medical
DX: R07.89 Other chest pain (principal)

== ENCOUNTER → 2022-06-10 | Outpatient (CLI) | payer MEDICARE, BC ==
--- NOTE | 2022-06-10 11:20 | CT ---
EXAMINATION TYPE: CT chest wo con DATE OF EXAM: 06/10/2022 COMPARISON: CT low-dose lung screening January 24, 2021 HISTORY: COPD CT DLP: 257 mGycm. Automated Exposure Control for Dose Reduction was Utilized. TECHNIQUE: CT scan of the thorax is performed without IV contrast. High-resolution protocol with 1 m m sequences obtained at 10 mm intervals in supine inspiration and expiration and prone technique. FINDINGS: LUNGS: Some respiratory motion artifact is present. There is scattered mild linear scarring bilateral ly. Mild peripheral scarring focally in the posterior aspect of the right lower lobe is present. No p leural effusion or pneumothorax. No bronchiectasis. A few small apical blebs on the right are redemon strated. No suspicious masses. MEDIASTINUM: Lack of IV contrast and technique are noted to limit evaluation for mediastinal and casimiro cially hilar adenopathy. There are no definitive greater than 1 cm mediastinal lymph nodes. Heart siz e upper limits of normal. No pericardial effusion is seen. Post CABG changes with sternal wires and m ediastinal clips are redemonstrated. OTHER: No additional significant abnormality is seen. IMPRESSION: Mild parenchymal fibrotic changes as detailed above.
== END | disposition home or self-care (01) ==
LOC: RADCTMAIN 09:40
PROVIDERS: ATTEND Internal Medicine Critical Care Medicine
DX: J84.10 Pulmonary fibrosis, unspecified (principal)
CPT/HCPCS: 71250

== ENCOUNTER → 2022-08-15 | Outpatient (CLI) | payer MEDICARE, BC ==
--- NOTE | 2022-08-15 18:33 | BD ---
EXAMINATION TYPE: Axial Bone Density DATE OF EXAM: 08/15/2022 COMPARISON: NEW TO BONE DENSITY CLINICAL HISTORY: 67 years year old Male. ICD-10 CODE: M85.9 DISORDER OF BONE, E03.9 HYPOTHROIDI Height: 67.9 Weight: 213 FRAX RISK QUESTIONS: Alcohol (3 or more units per day): IN THE PAST Glucocorticoids (More than 3mos): YES (Ex: prednisone, prednisolone, methylprednisolone, dexamethasone, and hydrocortisone). Rheumatoid Arthritis: UNSURE, Current Tobacco Use: YES RISK FACTORS HISTORY OF: STENTS VISIBLE IN ABDOMEN, WIRE IN CHEST OBSTR PUL DISEASE, Diet low in dairy products/other sources of calcium: YES A BIT Lost more than 2 inches in height since high school: YES Hyperparathyroidism: NO Adrenal Insufficiency: NO MEDICATIONS: Prednisone or other steroids: YES COPD AND CHF FOR 10 YRS Thyroid Medications: YES, FOR 5 YRS, SYNTHROID Additional Medications: BP MED, TYPE 2 DIABETIC, METFORMIN, HX OF HEART FAILURE, MEDS, STATIN FOR CHO LESTEROL, REFLUX MEDS, MULTIVITAMIN, Additional History: CHF, COPD, HX OF HEART FAILURE, DIABETIC, HYPERTENSION, CHOLESTEROL, THYROID, 2 I NVASIVE SURGERIES TO CHEST AND ABDOMEN, EXAM MEASUREMENTS: Bone mineral densitometry was performed using the [employer] System. Bone mineral density as measured about the Lumbar spine is: ----- L1-L4(G/cm2): 1.542 T Score Values are as follows: ----- L1: 2.6 ----- L2: 2.8 ----- L3: 3.1 ----- L4: 3.6 ----- L1-L4: 3.0 Bone mineral density BASELINE STUDY Bone mineral density about the R hip (g/cm2): 1.211 Bone mineral density about the L hip (g/cm2): 1.324 T Score values are as follows: -----R Neck: 0.9 -----L Neck: 1.3 -----R Total: 1.6 -----L Total: 2.5 Bone mineral density BASELINE FRAX%s: The graph provided illustrates a 5.5% chance for a major osteoporotic fx and a 0.4% chance fo r the hips probability for fx in 10 years time. IMPRESSION: Normal (Values between +1 and -1 indicate normal bone mass). Consider repeating this study in 5 year s or sooner if there is some new clinical indication. NOTE: T-SCORE=SD OF THE YOUNG ADULT MEAN.
== END | disposition home or self-care (01) ==
LOC: RADBDWWP 09:21
PROVIDERS: ATTEND Family Medicine
DX: M85.9 Disorder of bone density and structure, unspecified (principal); E03.9 Hypothyroidism, unspecified; E11.9 Type 2 diabetes mellitus without complications; I11.0 Hypertensive heart disease with heart failure
CPT/HCPCS: 77080

== ENCOUNTER → 2023-03-11 | Outpatient (CLI) | payer MEDICARE, BC ==
--- NOTE | 2023-03-12 10:22 | XR ---
EXAMINATION TYPE: XR lumbosacral spine min 4V DATE OF EXAM: 03/11/2023 COMPARISON: None HISTORY: Spina bifida, degenerative disc disease low back pain TECHNIQUE: 5V lumbar spine FINDINGS: There are 5 lumbar-type vertebral bodies. Pedicles are intact. No spondylolytic defects are evident. Mild facet degenerative changes are present. There is narrowing of the disc height at L5-S1. Posterior disc space narrowing is present L4-5 with m ilder posterior disc space narrowing within the remaining lumbar spine. There is narrowing of the T12 -L1 disc space. Vertebral body heights are preserved. Spondylosis is present. Vascular calcifications within the aorta. Iliac stents are present bilaterally. IMPRESSION: 1. Degenerative disc changes lumbar spine
== END | disposition home or self-care (01) ==
LOC: RADXRYALE 16:00
PROVIDERS: ATTEND Physician Assistant Medical
DX: M51.36 Other intervertebral disc degeneration, lumbar region (principal); Q05.9 Spina bifida, unspecified
CPT/HCPCS: 72110

== ENCOUNTER → 2024-02-20 | Outpatient (CLI) | payer MEDICARE, BC ==
[2024-02-20 14:37] LABS: African American GFR (CKD) >90 (>60 ml/min/1.73 sqM); Blood Urea Nitrogen 17 mg/dL (9-20); Non-African American GFR(CKD) 81 (>60 ml/min/1.73 sqM)
--- NOTE | 2024-02-25 14:33 | CT ---
EXAMINATION TYPE: CT chest w con DATE OF EXAM: 02/20/2024 COMPARISON: 06/10/2022 HISTORY: pulmonary disease CT DLP: 596 mGycm Automated exposure control for dose reduction was used. CONTRAST: CT scan of the chest is performed with IV Contrast, patient injected with 100 mL of Isovue 300. FINDINGS: LUNGS: The lungs are grossly clear, there is no concerning parenchymal mass or nodule identified. T here is no pleural effusion or pneumothorax seen. The tracheobronchial tree is patent. MEDIASTINUM: There are no greater than 1 cm hilar or mediastinal lymph nodes. No pericardial effusi on is seen. Thoracic aorta is of normal caliber. The heart is not enlarged. UPPER ABDOMEN: No significant abnormality appreciated. OTHER: No additional significant abnormality is seen. IMPRESSION: COPD
== END | disposition home or self-care (01) ==
LOC: RADCTMAIN 14:00
PROVIDERS: ATTEND Internal Medicine Critical Care Medicine
DX: J44.9 Chronic obstructive pulmonary disease, unspecified (principal); J84.10 Pulmonary fibrosis, unspecified; K76.0 Fatty (change of) liver, not elsewhere classified
CPT/HCPCS: 82565; 84520; 71260; 36415; Q9967